=== PATIENT | female | born 1990 | race Hispanic/Latino ===

== ENCOUNTER 2020-01-02 11:46 | Emergency (ER) | payer OTHER, SELFPAY ==
--- NOTE | ~2020-01-02 | CT_ITS ---
EXAMINATION: CT abdomen pelvis w con EXAM DATE: 01/02/2020 14:16 INDICATION: Right-sided abdominal pain. TECHNIQUE: Spiral CT of the abdomen and pelvis was performed following intravenous injection of 100 m L Omnipaque 350. Axial, coronal and sagittal images were reviewed. The dose-length product (DLP) fo r this examination was 714.86 mGy-cm. The exposure was tailored according to patient size (auto mA e xposure control), and iterative reconstruction (ASIR) was used as additional dose reduction technique . There is no prior study for comparison. FINDINGS: The liver, spleen, adrenal glands and pancreas are unremarkable. Gallbladder is unremarkab le. No biliary obstruction. Portal and splenic veins are patent. Kidneys enhance symmetrically. T here is no hydronephrosis. There is is retroflexed. There is a 3 cm left adnexal lesion likely the d ominant physiologic follicle. The bladder is unremarkable. There is no retroperitoneal or pelvic lym phadenopathy. The appendix is normal. The stomach and small bowel are unremarkable. There is expected amount of c olonic stool. No free intraperitoneal gas. The heart is normal in size. There are no pericardial or pleural effusions. The lung bases are unremarkable. Chronic L5 spondylolysis without spondyloli sthesis. IMPRESSION: 1. No acute intra-abdominal findings. 2. Chronic L5 spondylolysis bilaterally. Reviewed, dictated and finalized at location A. 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
[2020-01-02 11:50] VITALS: BP 131/84; PULSE 92; RESP 16; TEMP 36.4; O2SAT 99
--- NOTE | 2020-01-02 12:11 | PC.NURSE ---
patient brought back to ED room 18 with right sided abdomen pain. see triage notes. alert. oriented. still . states her daughter is 15 months old. taking only tylenol for migraines and pain at home. assessments documented.
--- NOTE | 2020-01-02 12:21 | ED.ABDPAIN ---
HPI - Abdominal Pain General Chief Complaint: Abdominal Pain Stated Complaint: ABD pain since last night Time Seen by Provider: 01/02/20 12:15 Source: patient Mode of arrival: ambulatory Limitations: no limitations History of Present Illness HPI narrative: 29 years old white female presents with right upper quadrant pain radiating to right flank area started yesterday. Patient vomited once yesterday. Patient reports pain gets worse with movement and palpation, get better if she lays down flat. Patient denies any fever, chills, nausea, chest pain, shortness of breath, exposure to anybody known having COVID-19. Patient does not take medicine at home, Does not smoke, drink or use drugs. Last menstrual. September 2019, patient had a baby July 2019 MD elicited complaint: abdominal pain Related Data Allergies Allergy/AdvReac Type Severity Reaction Status Date / Time No Known Allergies Allergy Verified 01/02/20 13:20 Review of Systems Review of Systems: Narrative: CONSTITUTIONAL: Denies fever, chills, or sweats. EYES: Denies visual changes, redness, or discharge. ENT: Denies rhinorrhea, congestion, sore throat, or otalgia. CARDIOVASCULAR: Denies chest pain, palpitations, or edema. RESPIRATORY: Denies cough or dyspnea. GASTROINTESTINAL: Abdominal pain GENITOURINARY: Denies dysuria or hematuria. SKIN: Denies rash or itching. MUSCULOSKELETAL: Denies back pain, joint pain, or myalgia. NEUROLOGIC: Denies headache, numbness, or weakness. PSYCHIATRIC: Denies anxiety or depression. [facility] Social History Social History (Updated 01/02/20 @ 12:23 by Yodit Murillo MD) Social History: Patient does not smoke, Second hand tobacco smoke exposure: No Exam Narrative: Exam Narrative: General appearance: Well-developed, well-nourished Skin: Normal color Head: Normocephalic, nontraumatic Eyes: Clear conjunctiva ENT: Oropharynx normal, ears normal, nose normal Neck: Supple, nontender Chest and respiratory: Airway patent, no respiratory distress, no accessory muscle use Heart: Regular rate/rhythm Abdomen: Soft, right abdominal tenderness, right flank tenderness Vascular: Normal peripheral pulses, normal capillary refill. 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 Further plan to follow Differential Diagnosis Differential diagnosis: Likely abdominal pain, calculus of kidney, constipation and pancreatitis Lab Data Result diagrams: 01/02/20 12:36 01/02/20 12:36 Labs: Lab Results 01/02/20 01/02/20 01/02/20 Range/Units 12:36 12:36 12:36 WBC 9.4 (4.5-10.0) K/mm3 RBC 5.06 (4.2-5.4) M/mm3 Hgb 14.5 (12.0-15.0) g/dL Hct 43.4 (37.0-47.0) % MCV 85.8 (80-100) fl MCH 28.7 (26-34) pg MCHC 33.4 (32-36) g/dl RDW 12.2 (11.5-14.5) % Plt Count 259 (150-375) k/mm3 MPV 10.3 (7.4-10.4) fl Immature Gran % (Auto) 0.3 (0-0.5) % Neut % (Auto) 70.1 (45.5-73.1) % Lymph % (Auto) 23.5 (18.3-44
[2020-01-02 12:58] LABS: Basophils Percent Auto 0.3 % (0.2-1.2); Eosinophils Absolute Auto 0.1 K/mm3 (0-0.3); Eosinophils Percent Auto 0.7 % (0-4.4); Hematocrit 43.4 % (37.0-47.0); Hemoglobin 14.5 g/dL (12.0-15.0); Immature Granulocyte Absolute 0.03 K/mm3 (0.00-0.031); Immature Granulocyte Percent A 0.3 % (0-0.5); Lymphocytes Percent Auto 23.5 % (18.3-44.2); Mean Corpuscular HGB Conc 33.4 g/dl (32-36); Mean Corpuscular Hemoglobin 28.7 pg (26-34); Mean Corpuscular Volume 85.8 fl (80-100); Mean Platelet Volume 10.3 fl (7.4-10.4); Monocytes Absolute Auto 0.5 K/mm3 (0.1-0.6); Monocytes Percent Auto 5.1 % (2.6-8.5); Neutrophils Absolute Auto 6.6 K/mm3 (1.3-6.7); Neutrophils Percent Auto 70.1 % (45.5-73.1); Platelet Count Result 259 k/mm3 (150-375); Red Blood Count 5.06 M/mm3 (4.2-5.4); Red Cell Distribution Width 12.2 % (11.5-14.5); White Blood Count 9.4 K/mm3 (4.5-10.0)
[2020-01-02 13:02] LABS: Add Urine Microscopic? YES; Appearance Urine Cloudy (Clear); Bilirubin Urine Negative (Negative); Blood Urine Negative (Negative); Color Urine Yellow (Yellow); Glucose Urine UA Negative (Negative); Ketones Urine Negative (Negative); Leukocyte Esterase Ur Negative LEU/UL (Negative); Mucus Urine Rare /lpf; Nitrate Urine Negative (Negative); Protein Urine 2+ mg/dL (Negative); RBC Urine 0-2 /hpf (0-2); Specific Grav Ur 1.027 (1.001-1.035); Squamous Epithelial Cell Urine Many /hpf (Few); Urobilinogen Urine Negative mg/dL (<2.0); WBC Urine 0-3 /hpf
[2020-01-02 13:12] LABS: Alanine Aminotransferase 21 U/L (4-35); Albumin Level 4.7 g/dL (3.5-5.1); Alkaline Phosphatase 99 U/L (38-126); Anion Gap 10 mmol/L (8-16); Aspartate Amino Transferase 24 U/L (14-36); Bilirubin,Total 0.6 mg/dL (0.2-1.3); Blood Urea Nitrogen 8 mg/dL (7-17); Calcium 9.2 mg/dL (8.4-10.2); Carbon Dioxide 29 mmol/L (22-30); Chloride 100 mmol/L (98-107); Estimated Glomerular Filt Rate > 60; Glucose 92 mg/dL (65-105); Lipase 195 U/L (23-300); Potassium 3.5 mmol/L (3.4-5.0); Sodium 139 mmol/L (137-145)
--- NOTE | 2020-01-02 13:55 | PC.NURSE ---
patient to CT via wheelchair.
--- NOTE | 2020-01-02 14:09 | PC.NURSE ---
received call from [employer] patient with increased nausea and some dizziness after contrast given. back in room 21 now. alert. c/o nausea. vitals ok. call light in reach. side rail up. denies needs.
[2020-01-02 14:10] VITALS: BP 148/70; PULSE 78; RESP 18; O2SAT 100
[2020-01-02 14:30] VITALS: BP 127/71; PULSE 78; RESP 18; O2SAT 100
--- NOTE | 2020-01-02 14:32 | PC.NURSE ---
all tests resulted. resting on stretcher. vitals good. denies needs.
[2020-01-02 15:00] VITALS: BP 126/72; PULSE 82; RESP 16; O2SAT 100
== END 2020-01-02 15:27 | disposition home or self-care (01) ==
PROVIDERS: Emergency Provider Emergency Medicine
DX: R10.11 Right upper quadrant pain (principal)
CPT/HCPCS: 36415; 74177; 80053; 81001; 81025; 83690; 85025; 99284; Q9967

== ENCOUNTER 2020-05-25 16:33 | Emergency (ER) | payer OTHER, SELFPAY ==
[2020-05-25 17:13] VITALS: BP 142/99; PULSE 99; RESP 12; TEMP 36.8; O2SAT 100
--- NOTE | 2020-05-25 18:37 | PC.NURSE ---
ambulates around WR with slight limp. No acute distress.
[2020-05-25 19:25] LABS: Basophils Percent Auto 0.2 % (0.2-1.2); Hematocrit 41.6 % (37.0-47.0); Hemoglobin 14.1 g/dL (12.0-15.0); Immature Granulocyte Absolute 0.02 K/mm3 (0.00-0.031); Immature Granulocyte Percent A 0.2 % (0-0.5); Lymphocytes Absolute Auto 2.79 K/mm3 (0.9-3.2); Lymphocytes Percent Auto 30.9 % (18.3-44.2); Mean Corpuscular HGB Conc 33.9 g/dl (32-36); Mean Corpuscular Hemoglobin 29.4 pg (26-34); Mean Corpuscular Volume 86.7 fl (80-100); Mean Platelet Volume 9.1 fl (7.4-10.4); Monocytes Absolute Auto 0.6 K/mm3 (0.1-0.6); Monocytes Percent Auto 6.1 % (2.6-8.5); Neutrophils Absolute Auto 5.7 K/mm3 (1.3-6.7); Neutrophils Percent Auto 62.6 % (45.5-73.1); Platelet Count Result 311 k/mm3 (150-375); Red Cell Distribution Width 12.1 % (11.5-14.5)
[2020-05-25 19:34] VITALS: BP 131/79; PULSE 94; RESP 15; O2SAT 100
[2020-05-25 19:34] LABS: Anion Gap 8 mmol/L (8-16); Blood Urea Nitrogen 9 mg/dL (7-17); Calcium 9.1 mg/dL (8.4-10.2); Carbon Dioxide 28 mmol/L (22-30); Chloride 103 mmol/L (98-107); Estimated Glomerular Filt Rate > 60; Glucose 95 mg/dL (65-105); Potassium 3.7 mmol/L (3.4-5.0); Sodium 139 mmol/L (137-145)
[2020-05-25 19:38] LABS: INR 0.9; Prothrombin Time 12.9 Seconds (11.1-14.7)
[2020-05-25 19:39] LABS: Partial Thromboplastin Time 32.7 SECONDS (22.3-36.8)
[2020-05-25 19:57] LABS: D Dimer 0.27 ug/mL (<0.48)
--- NOTE | 2020-05-25 20:02 | ED.LOWEXIN ---
HPI - Extremity Injury (Lower) General Chief Complaint: Extremity Injury, Lower Stated Complaint: bilat leg pain Time Seen by Provider: 05/25/20 19:13 Source: patient Mode of arrival: ambulatory Limitations: no limitations History of Present Illness HPI Narrative: Patient is a 29 year old female who presents complaining of leg pain. She reports pain to bilateral legs x 1 day. Reports pain to left leg has subsided and reports pain only to right leg. She reports tingling in right leg that has resolved. She reports a history of RLS. She reports getting [employer] Vaccine on 05/17/20. She denies chest pain or shortness of breath. She denies history of DVT. MD complaint: other (right leg pain) Related Data Allergies Allergy/AdvReac Type Severity Reaction Status Date / Time amoxicillin [From Amoxil] Allergy Rash Verified 05/25/20 19:37 Review of Systems Review of Systems: Narrative: CONSTITUTIONAL: Denies fever, chills, or sweats. EYES: Denies visual changes, redness, or discharge. ENT: Denies rhinorrhea, congestion, sore throat, or otalgia. CARDIOVASCULAR: Denies chest pain, palpitations, or edema. RESPIRATORY: Denies cough or dyspnea. GASTROINTESTINAL: Denies abdominal pain, nausea, vomiting, or diarrhea. GENITOURINARY: Denies dysuria or hematuria. SKIN: Denies rash or itching. MUSCULOSKELETAL: Reports right leg pain NEUROLOGIC: Denies headache, numbness, dizziness, or weakness. PSYCHIATRIC: Denies anxiety or depression. PMFSH Past Medical History Medical History (Updated 05/25/20 @ 20:15 by WILBER Blanchard) No significant past medical history Surgical History Surgical History (Updated 05/25/20 @ 20:07 by WILBER Blanchard) No significant past surgical history Social History Social History Social History: Patient does not smoke, Second hand tobacco smoke exposure: No Gender identity (if verbalized by the patient): Female Comments At the time of signature, I have reviewed and agree with nursing past medical, surgical, social, and family history unless otherwise noted. Please see nursing chart for further information. There is no relevant family history pertinent to the presenting complaint. Exam Narrative: Exam Narrative: GENERAL: Well-appearing, well-nourished, and in no acute distress. HEAD: Normocephalic, atraumatic. EYES: EOMI. No redness or drainage. Conjunctiva are normal. ENT: Mucous membranes pink and moist. CHEST: No respiratory distress. Clear to auscultation. HEART: Regular rate and rhythm. No murmur appreciated. Normal peripheral pulses. EXTREMITIES: Normal range of motion. No edema, erythema, lesions or warmth noted to bilateral legs. SKIN: Warm, dry, no rash. NEURO: No focal deficits. Alert and oriented x3. Gait steady. PSYCH: Normal affect. No signs of depression or anxiety. Course Vital Signs Vital signs: Vital Signs Temperature 36.8 C 05/25/20 17:13 Pulse Rate 99 05/25/20 17:13 Respiratory Rate 12 05/25/20 17:13 Blood Pressure 142/99 H 05/25/20 17:13 Pulse Oximetry 100 05/25/20 17:13 Temperature 36.8 C 05/25/20 17:13 Pulse Rate 95 05/25/20 20:43 Respiratory Rate 16 05/25/20 20:43 Blood Pressure 132/73 05/25/20 20:43 Pulse Oximetry 100 05/25/20 20:43 Reviewed-patient is informed that they may have pre-hypertension or hypertension based on a blood pressure reading. I recommend the patient call the primary care provider listed on their discharge instructions or a physician of their choice this week to arrange follow-up for further evaluation of possible pre-hypertension or hypertension. MDM - Extremity Injury (Lower) MDM Narrative Medical decision making narrative: Patient's labs are within normal limits. Small likelihood of DVT or other clot. Discussed with patient. Discussed signs or symptoms that would warrant a return to the ED for further evaluation. Patient agrees with p
[2020-05-25 20:43] VITALS: BP 132/73; PULSE 95; RESP 16; O2SAT 100
== END 2020-05-25 20:46 | disposition home or self-care (01) ==
PROVIDERS: Physician Assistant; Emergency Provider Nurse Practitioner; PCP Physician Assistant
DX: M79.604 Pain in right leg (principal); G25.81 Restless legs syndrome
CPT/HCPCS: 36415; 80048; 85025; 85380; 85610; 85730; 99283

== ENCOUNTER 2020-07-27 14:32 | Emergency (ER) | payer OTHER, SELFPAY ==
[2020-07-27 14:42] VITALS: BP 133/78; PULSE 81; RESP 20; TEMP 36.7; O2SAT 99
--- NOTE | 2020-07-27 14:59 | ED.SKABFB ---
HPI - Skin/Abscess/Foreign Bdy General Chief complaint: Skin/Abscess/Foreign Body Stated complaint: Blister on foot Time Seen by Provider: 07/27/20 14:55 Source: patient Mode of arrival: ambulatory Limitations: no limitations History of Present Illness HPI narrative: Yesi Garcia is a 29 yo female from medial side of left foot-has had it for a few days, she is concerned because it drained and fluid is more yellowish in the inside, it is less lightly red around the actual blister and she is concerned about infection Related Data Home Medications Medication Instructions Recorded Confirmed No Home Medications 07/27/20 07/27/20 Allergies Allergy/AdvReac Type Severity Reaction Status Date / Time amoxicillin [From Amoxil] Allergy Rash Verified 07/27/20 14:53 Review of Systems Review of Systems: Narrative: CONSTITUTIONAL: Denies fever, chills, sweats. EYES: Denies visual changes, redness, discharge. ENT: Denies rhinorrhea, congestion, sore throat, otalgia. CARDIOVASCULAR: Denies chest pain, palpitations, edema. RESPIRATORY: Denies dyspnea, wheezing, cough GASTROINTESTINAL: Denies abdominal pain, nausea, vomiting, diarrhea. GENITOURINARY: Denies dysuria, hematuria, abnormal discharge SKIN: Denies rash or itching. Small blister medial side left foot NEUROLOGIC: Denies numbness, or focal weakness. PSYCHIATRIC: Denies anxiety or depression. PMFSH Past Medical History Medical History Migraine No significant past medical history Surgical History Surgical History No significant past surgical history Social History Social History Social History: Patient does not smoke, Second hand tobacco smoke exposure: No Gender identity (if verbalized by the patient): Female Comments At time of signature, I agree with nursing past medical, surgical, social and family history. There is no relevant family history pertinent to the presenting complaint. Exam Narrative: Exam Narrative: GENERAL: This is a well-nourished, well-developed patient, in mild distress. HEAD: normocephalic, atraumatic. EYES: PERRL. Sclera clear/white. Vision is grossly intact. EARS: External ears normal, auditory canals clear and without drainage, TMs normal without perforation. Hearing grossly intact. NOSE: External nose normal without nasal discharge, nares without redness, no rhinorrhea. THROAT: Mucous membranes moist, posterior pharynx NECK: Neck supple, non-tender CARDIOVASCULAR: Regular rate and rhythm without murmurs, gallops, or rubs. RESPIRATORY: Clear to auscultation. Breath sounds equal bilaterally. No wheezes, rales, or rhonchi. GASTROINTESTINAL: Abdomen soft, non-tender, SKIN: warm, intact with no suspicious lesions or rash, good texture and turgor. Left medial blister side of foot, mild hardness, no fluctuant, 1.5x 1.5, with some fluid NEURO: awake, alert, and oriented to person, place and time. There were no obvious focal neurologic abnormalities. Steady gait EXTREMITIES: Normal range of motion. BACK: Nontender without deformity Course Course Emergency Course: Posterior on the medial side of left foot Does not appear to be infected continue with Neosporin and dressing, no pressure to the blister, discussed her shoes Vital Signs Vital signs: Vital Signs Temperature 98.1 F 07/27/20 14:42 Pulse Rate 81 07/27/20 14:42 Respiratory Rate 20 07/27/20 14:42 Blood Pressure 133/78 07/27/20 14:42 Pulse Oximetry 99 07/27/20 14:42 Temperature 98.1 F 07/27/20 14:42 Pulse Rate 81 07/27/20 14:42 Respiratory Rate 20 07/27/20 14:42 Blood Pressure 133/78 07/27/20 14:42 Pulse Oximetry 99 07/27/20 14:42 MDM - Skin/Abscess/Foreign Bdy Differential Diagnosis Differential diagnosis: Likely abscess of skin or subcutaneous tissue, urticaria, ce
== END 2020-07-27 15:15 | disposition home or self-care (01) ==
PROVIDERS: Emergency Provider Nurse Practitioner
DX: S90.822A Blister (nonthermal), left foot, initial encounter (principal); X58.XXXA Exposure to other specified factors, initial encounter
CPT/HCPCS: 99212; G0463

== ENCOUNTER 2020-09-17 11:46 | Emergency (ER) | payer OTHER, SELFPAY ==
--- NOTE | ~2020-09-17 | CT_ITS ---
EXAMINATION: CT BRAIN W/O DATE: 09/17/2020 13:13 INDICATION: Severe headache TECHNIQUE: Computed tomography (CT) of the head was performed without intravenous contrast. The dose- length product was 605.33 mGy-cm. Automated exposure control and iterative reconstruction technique w ere employed. COMPARISON: No prior studies for comparison. FINDINGS: Normal brain parenchymal volume for age. Normal roldan-white differentiation. No acute intrac ranial hemorrhage, infarction, mass or mass effect. No ventriculomegaly or midline shift. Midline sagittal images demonstrate a normal corpus callosum, c raniovertebral junction and sella turcica. Basilar cisterns are patent. Paranasal sinuses and mastoids are pneumatized. No depressed skull fractures. IMPRESSION: 1. No acute intracranial abnormality. Reviewed, dictated and finalized at location A.
[2020-09-17 12:00] VITALS: BP 129/88; PULSE 92; RESP 20; TEMP 37; O2SAT 100
[2020-09-17 13:48] VITALS: BP 124/87; PULSE 96; RESP 20; O2SAT 98
[2020-09-17] MEDS: PROCHLORPERAZINE EDISYLATE 10 MG/2 ML VIAL IV PUSH (14:30)
[2020-09-17] MEDS: LACTATED RINGERS 1,000 ML 999 ML IV CONT (14:31)
[2020-09-17 14:32] VITALS: BP 135/87; PULSE 83; RESP 20; O2SAT 100
--- NOTE | 2020-09-17 14:36 | ED.HA ---
HPI - Headache General Chief Complaint: Headache Stated Complaint: headache, vomiting Time Seen by Provider: 09/17/20 12:45 Source: patient Mode of arrival: ambulatory Limitations: no limitations History of Present Illness HPI Narrative: 30-year-old female Here for evaluation of a headache She says that symptoms began in 5 or 6 days ago went away for a day and now have returned She has a history of migraines and although she has had some nausea with this she is also had some other symptoms which are less typical for her Primarily she had some body aches and fatigue which were significant enough that she went to have a Covid test 3 days ago which was negative She does not have visual symptoms, she does not have a fever, she does not have neck pain, she does not have sinus congestion, and no sore throat She is used Tylenol which is helped but her symptoms have tended to return Related Data Home Medications Medication Instructions Recorded Confirmed No Home Medications 07/27/20 09/17/20 Allergies Allergy/AdvReac Type Severity Reaction Status Date / Time amoxicillin [From Amoxil] Allergy Rash Verified 09/17/20 12:40 Review of Systems Review of Systems: All systems reviewed & are unremarkable except as noted in HPI and below Constitutional: Constitutional: Reports no additional constitutional complaints, Denies chills, Reports fatigue, Denies fever(s), Denies headache(s) and Reports weakness Eyes: Eyes: Reports no additional eye complaints, Denies change in vision and Reports photophobia ENT: Denies headache(s), Denies nasal congestion and Denies sore throat Cardiovascular: Cardiovascular: Denies dyspnea Respiratory: Respiratory: Reports cough and Denies dyspnea Gastrointestinal: Gastrointestinal: Denies abdominal pain, Denies diarrhea, Reports nausea and Denies vomiting Genitourinary: Genitourinary: Denies urinary frequency Musculoskeletal: Musculoskeletal: Reports myalgias, Denies deformity, Denies arthralgias, Denies joint swelling and Denies numbness Integumentary/Breasts: Skin/Breast: Denies rash and Denies wounds Neurologic: Reports headache(s), Denies focal weakness and Denies numbness Psychiatric: Psychiatric: Reports no additional psychiatric complaints Endocrine: Endocrine: Reports no additional endocrine complaints Hematologic/Lymphatic: Hematologic/Lymphatic: Reports no additional hematologic/lymphatic complaints Allergic/Immunologic: Allergic/Immunologic: Reports no additional allergic/immunologic complaints PMFSH Past Medical History Medical History Migraine No significant past medical history Surgical History Surgical History No significant past surgical history Social History Social History Social History: Patient does not smoke, Second hand tobacco smoke exposure: No Gender identity (if verbalized by the patient): Female Exam Const: General: cooperative and no acute distress Orientation/consciousness: patient oriented x3 (alert) HENMT: Head: normal to inspection, normocephalic, atraumatic, no contusions and no hematomas Ears: external ears normal General nose exam: no epistaxis Face and sinus: no sinus tenderness Eyes: Conjunctivae: conjunctivae normal Pupils: Equal, round and reactive pupils present EOM: EOMs intact bilaterally Other: Difficult funduscopic but disc looks sharp Neck: Neck: normal visual inspection, no lymphadenopathy, supple and no JVD Other: Supple, full range of motion, nontender Resp: Effort & Inspection: normal respiratory effort and not labored Auscultation: clear to auscultation bilaterally, no rales, no rhonchi, no wheezes and other (BS =) Cardio: Rate: regular rate Rhythm: regular rhythm Heart sounds: no murmurs GI: GI Palp: Yes Soft to palpation, No Tenderness to
[2020-09-17 14:38] LABS: Basophils Percent Auto 0.2 % (0.2-1.2); Hematocrit 39.6 % (37.0-47.0); Hemoglobin 13.5 g/dL (12.0-15.0); Immature Granulocyte Absolute 0.02 K/mm3 (0.00-0.031); Immature Granulocyte Percent A 0.2 % (0-0.5); Lymphocytes Absolute Auto 2.29 K/mm3 (0.9-3.2); Lymphocytes Percent Auto 24.7 % (18.3-44.2); Mean Corpuscular HGB Conc 34.1 g/dl (32-36); Mean Corpuscular Volume 85.2 fl (80-100); Mean Platelet Volume 9.5 fl (7.4-10.4); Monocytes Absolute Auto 0.5 K/mm3 (0.1-0.6); Monocytes Percent Auto 4.9 % (2.6-8.5); Neutrophils Absolute Auto 6.5 K/mm3 (1.3-6.7); Platelet Count Result 279 k/mm3 (150-375); Red Blood Count 4.65 M/mm3 (4.2-5.4); Red Cell Distribution Width 11.8 % (11.5-14.5); White Blood Count 9.3 K/mm3 (4.5-10.0)
[2020-09-17 15:59] VITALS: BP 126/84; PULSE 82; RESP 20; O2SAT 99
[2020-09-17 16:20] VITALS: BP 118/88; PULSE 78; RESP 20; O2SAT 99
== END 2020-09-17 16:22 | disposition home or self-care (01) ==
PROVIDERS: Emergency Provider Emergency Medicine; PCP Physician Assistant
DX: R51.9 Headache, unspecified (principal)
CPT/HCPCS: 36415; 70450; 81025; 85025; 96361; 96374; 99284; J0780; J1200; J7120

== ENCOUNTER 2020-09-17 19:23 | Emergency (ER) | payer OTHER, SELFPAY ==
[2020-09-17 19:37] VITALS: BP 135/92; PULSE 110; RESP 18; TEMP 36.1; O2SAT 99
[2020-09-17] MEDS: diphenhydrAMINE HCl INJ 50 MG/ML VIAL (21:08)
--- NOTE | 2020-09-17 21:42 | ED.GENADULT ---
HPI - General Adult General Chief complaint: Unspecified Stated complaint: jaw pain Time Seen by Provider: 09/17/20 21:40 Source: patient Mode of arrival: ambulatory Limitations: no limitations History of Present Illness HPI narrative: 30-year-old female Treated for a headache earlier with Compazine and started having a dystonic reaction after she got home IV Benadryl upfront and apart from being drowsy is better now Related Data Home Medications Medication Instructions Recorded Confirmed No Home Medications 07/27/20 09/17/20 Allergies Allergy/AdvReac Type Severity Reaction Status Date / Time amoxicillin [From Amoxil] Allergy Unknown Rash Verified 09/17/20 21:06 prochlorperazine AdvReac Intermediate Muscle Verified 09/17/20 21:06 [From Compazine] Spasms Review of Systems Musculoskeletal: Comments: Facial and neck spasms PMFSH Past Medical History Medical History Migraine No significant past medical history Surgical History Surgical History No significant past surgical history Social History Social History Social History: Patient does not smoke, Second hand tobacco smoke exposure: No Gender identity (if verbalized by the patient): Female Exam Const: General: cooperative, healthy appearing, comfortable and no acute distress HENMT: Head: normal to inspection Neck: Neck: normal visual inspection Resp: Effort & Inspection: normal respiratory effort and able to speak in complete sentences Neuro: General: patient oriented x3, CN's II-XI intact bilaterally and other (Drowsy) Course Course Emergency Course: Symptoms resolved after Benadryl Vital Signs Vital signs: Vital Signs Temperature 36.1 C L 09/17/20 19:37 Pulse Rate 110 H 09/17/20 19:37 Respiratory Rate 18 09/17/20 19:37 Blood Pressure 135/92 H 09/17/20 19:37 Pulse Oximetry 99 09/17/20 19:37 Temperature 36.1 C L 09/17/20 19:37 Pulse Rate 110 H 09/17/20 19:37 Respiratory Rate 18 09/17/20 19:37 Blood Pressure 135/92 H 09/17/20 19:37 Pulse Oximetry 99 09/17/20 19:37 Medical Decision Making Vital Signs Vital Signs: Vital Signs Temperature 36.1 C L 09/17/20 19:37 Pulse Rate 110 H 09/17/20 19:37 Respiratory Rate 18 09/17/20 19:37 Blood Pressure 135/92 H 09/17/20 19:37 Pulse Oximetry 99 09/17/20 19:37 Temperature 36.1 C L 09/17/20 19:37 Pulse Rate 110 H 09/17/20 19:37 Respiratory Rate 18 09/17/20 19:37 Blood Pressure 135/92 H 09/17/20 19:37 Pulse Oximetry 99 09/17/20 19:37 Discharge Plan Discharge Clinical Impression: Dystonic drug reaction Patient Disposition: Home, Self-Care Condition: Improved Additional Instructions: Dystonic reactions like you experienced are occasional side effects of drugs frequently used to treat nausea and vomiting or migraine headaches, in the future if you need treatment for these conditions getting Benadryl as well will often avoid that complication Symptoms should not return after discharge but if they do you can take oral [id number] Benadryl at home Prescriptions: No Action No Home Medications RF: 0 Follow-up/Referrals: Chidi,CARISSA Stone [Primary Care Provider] -
[2020-09-17 22:22] VITALS: BP 131/75; PULSE 98; RESP 18; TEMP 36.7; O2SAT 100
== END 2020-09-17 22:24 | disposition home or self-care (01) ==
PROVIDERS: Emergency Provider Emergency Medicine; PCP Physician Assistant
DX: G24.09 Other drug induced dystonia (principal); T43.3X5A Adverse effect of phenothiazine antipsychotics and neuroleptics, initial encounter
CPT/HCPCS: 99281; J1200

== ENCOUNTER 2021-01-17 15:35 | Emergency (ER) | payer OTHER, SELFPAY ==
[2021-01-17 15:52] VITALS: BP 142/89; PULSE 81; RESP 16; TEMP 36.9; O2SAT 100
--- NOTE | 2021-01-17 17:08 | ED.EAR ---
HPI - Ear Problem General Chief complaint: Ear Stated complaint: ear pain Source: patient and RN notes reviewed Mode of arrival: ambulatory History of Present Illness HPI Narrative: This is a 30-year-old female who presented to urgent care with complaints of bilateral ear pain. According to patient she was ill last week she had coughing nausea vomiting, fatigue, and runny nose. She notes that her condition has improved but she has developed bilateral ear pain. The patient denies SOB, CP, palpitation, extremity numbness, lightheadedness, dizziness, constipation, diarrhea, chills, or fever. She denies any discharge or decrease in hearing, trauma or foreign bodies MD Complaint: ear pain Related Data Home Medications Medication Instructions Recorded Confirmed lisinopril 01/17/21 sumatriptan succinate mg PO 01/17/21 venlafaxine mg PO 01/17/21 Allergies Allergy/AdvReac Type Severity Reaction Status Date / Time amoxicillin [From Amoxil] Allergy Unknown Rash Verified 09/17/20 21:06 prochlorperazine AdvReac Intermediate Muscle Verified 09/17/20 21:06 [From Compazine] Spasms Review of Systems Review of Systems: A 14 organ system Review of Systems was performed and pertinent positives included in the HPI, otherwise remaining ROS is negative. [facility] Past Medical History Medical History Migraine No significant past medical history Surgical History Surgical History No significant past surgical history Social History Social History Social History: Patient does not smoke, Second hand tobacco smoke exposure: No Gender identity (if verbalized by the patient): Female Exam Narrative: GENERAL: This is a well-nourished, well-developed patient, in no apparent distress. HEAD: normocephalic, atraumatic. EYES: PERRL. Sclera clear/white. Vision is grossly intact. EARS: External ears normal, auditory canals edema with erythematous and without drainage, TMs normal without perforation. Hearing grossly intact. NOSE: External nose normal with no obvious nasal discharge, nares without redness, no rhinorrhea. THROAT: Mucous membranes moist, posterior pharynx clear. NECK: Neck supple, non-tender without lymphadenopathy, masses or thyromegaly. CARDIOVASCULAR: Regular rate and rhythm without murmurs, gallops, or rubs. RESPIRATORY: Clear to auscultation. Breath sounds equal bilaterally. No wheezes, rales, or rhonchi. GASTROINTESTINAL: Abdomen soft, non-tender, nondistended. Bowel sounds are active. No hepato-splenomegaly, or palpable masses. No guarding. SKIN: warm, intact with no suspicious lesions or rash, good texture and turgor. NEURO: awake, alert, and oriented to person, place and time. There were no obvious focal neurologic abnormalities. Steady gait EXTREMITIES: Normal range of motion. No edema. No calf tenderness. Negative Homans sign bilaterally. BACK: Nontender without deformity or crepitance. No flank tenderness. For his blood Course Course Emergency Course: Patient will discharge home with cefdinir she is allergic to amoxicillin Vital Signs Vital signs: Vital Signs Temperature 98.4 F 01/17/21 15:52 Pulse Rate 81 01/17/21 15:52 Respiratory Rate 16 01/17/21 15:52 Blood Pressure 142/89 H 01/17/21 15:52 Pulse Oximetry 100 01/17/21 15:52 Temperature 98.4 F 01/17/21 15:52 Pulse Rate 81 01/17/21 15:52 Respiratory Rate 16 01/17/21 15:52 Blood Pressure 142/89 H 01/17/21 15:52 Pulse Oximetry 100 01/17/21 15:52 Medical Decision Making Differential Diagnosis Differential Diagnosis: Otitis media versus otitis externa versus viral infection Vital Signs Vital Signs: Vital Signs Temperature 98.4 F 01/17/21 15:52 Pulse Rate 81 01/17/21 15:52 Respiratory Rate 16 01/17/21 15:52 Blood Pressure 142/89 H 01/17/21 15
== END 2021-01-17 17:16 | disposition home or self-care (01) ==
PROVIDERS: Emergency Provider Nurse Practitioner; PCP Physician Assistant
DX: H60.501 Unspecified acute noninfective otitis externa, right ear (principal)
CPT/HCPCS: 99213; G0463

== ENCOUNTER 2021-03-01 07:29 | Emergency (ER) | payer OTHER, SELFPAY ==
[2021-03-01 07:30] VITALS: BP 135/90; PULSE 94; RESP 16; TEMP 37; O2SAT 99
[2021-03-01 08:19] LABS: Add Urine Microscopic? YES; Appearance Urine Cloudy (Clear); Bacteria Urine Trace /hpf; Bilirubin Urine Negative (Negative); Blood Urine 1+ (Negative); Color Urine Yellow (Yellow); Glucose Urine UA Negative (Negative); Ketones Urine Negative (Negative); Leukocyte Esterase Ur 2+ LEU/UL (Negative); Mucus Urine Heavy /lpf; Nitrate Urine Negative (Negative); Protein Urine Negative (Negative); Specific Grav Ur 1.027 (1.001-1.035); Squamous Epithelial Cell Urine Many /hpf (Few)
[2021-03-01 08:27] LABS: Basophils Percent Auto 0.3 % (0.2-1.2); Eosinophils Percent Auto 0.1 % (0-4.4); Hematocrit 37.9 % (37.0-47.0); Immature Granulocyte Absolute 0.02 K/mm3 (0.00-0.031); Immature Granulocyte Percent A 0.3 % (0-0.5); Lymphocytes Absolute Auto 1.96 K/mm3 (0.9-3.2); Lymphocytes Percent Auto 29.3 % (18.3-44.2); Mean Corpuscular HGB Conc 34.3 g/dl (32-36); Mean Corpuscular Hemoglobin 29.4 pg (26-34); Mean Corpuscular Volume 85.7 fl (80-100); Mean Platelet Volume 9.6 fl (7.4-10.4); Monocytes Absolute Auto 0.5 K/mm3 (0.1-0.6); Monocytes Percent Auto 7.8 % (2.6-8.5); Neutrophils Absolute Auto 4.2 K/mm3 (1.3-6.7); Neutrophils Percent Auto 62.2 % (45.5-73.1); Platelet Count Result 270 k/mm3 (150-375); Red Blood Count 4.42 M/mm3 (4.2-5.4); Red Cell Distribution Width 12.2 % (11.5-14.5); White Blood Count 6.7 K/mm3 (4.5-10.0)
[2021-03-01 08:38] LABS: Alanine Aminotransferase 17 U/L (4-35); Albumin Level 4.2 g/dL (3.5-5.1); Alkaline Phosphatase 65 U/L (38-126); Anion Gap 6 mmol/L (8-16); Aspartate Amino Transferase 21 U/L (14-36); Bilirubin,Total 0.8 mg/dL (0.2-1.3); Blood Urea Nitrogen 9 mg/dL (7-17); Carbon Dioxide 27 mmol/L (22-30); Chloride 105 mmol/L (98-107); Estimated Glomerular Filt Rate > 60; Glucose 107 mg/dL (65-110); Potassium 3.7 mmol/L (3.4-5.0); Sodium 138 mmol/L (137-145)
--- NOTE | 2021-03-01 08:47 | ED.GENADULT ---
HPI - General Adult General Chief complaint: Headache Stated complaint: i have a migraine Time Seen by Provider: 03/01/21 07:32 Source: patient and RN notes reviewed Mode of arrival: ambulatory Limitations: no limitations History of Present Illness HPI narrative: 30-year-old female with history of migraines presents to the emergency department for evaluation migraine with associated nausea vomiting dizziness and diarrhea. Patient states that the migraine started on approximately Friday. Patient has been taking her sumatriptan as directed. Patient states that this has helped a little bit. Patient reports the headache is typical to her previous. Patient states this is not the worst headache of her life. Patient states over the last 2 days she has developed some nausea and vomiting. Patient states that this is not atypical for her migraines. Patient also describes having some intermittent diarrhea. Patient states that prior to having a diarrheal bowel movement she does get lower abdominal cramping. Patient denies any cramping or abdominal pain at this time. Patient's last menstrual period was around February 10. Related Data Home Medications Medication Instructions Recorded Confirmed lisinopril 01/17/21 sumatriptan succinate mg PO 01/17/21 venlafaxine mg PO 01/17/21 Allergies Allergy/AdvReac Type Severity Reaction Status Date / Time amoxicillin [From Amoxil] Allergy Unknown Rash Verified 09/17/20 21:06 prochlorperazine AdvReac Intermediate Muscle Verified 09/17/20 21:06 [From Compazine] Spasms Review of Systems Review of Systems: CONSTITUTIONAL: Denies fever, chills, or sweats. EYES: Denies visual changes, redness, or discharge. ENT: Denies rhinorrhea, congestion, sore throat, or otalgia. CARDIOVASCULAR: Denies chest pain, palpitations, or edema. RESPIRATORY: Denies cough or dyspnea. GASTROINTESTINAL: Denies abdominal pain, nausea, vomiting, or diarrhea. GENITOURINARY: Denies dysuria or hematuria. SKIN: Denies rash or itching. MUSCULOSKELETAL: Denies back pain, joint pain, or myalgia. NEUROLOGIC: Does report migraine headache but denies any associated numbness or weakness. PSYCHIATRIC: Denies anxiety or depression. PMFSH Past Medical History Medical History Migraine No significant past medical history Surgical History Surgical History No significant past surgical history Social History Social History Social History: Patient does not smoke, Second hand tobacco smoke exposure: No Gender identity (if verbalized by the patient): Female Exam Narrative: APPEARANCE: Well appearing, no pain, no distress, well-nourished. HEAD: normocephalic, atraumatic. EYES: PERRLA/EOMI, conjunctivae clear. NOSE: Normal no drainage THROAT: Pharynx clear, no exudate. NECK: Supple. No adenopathy, no masses. RESPIRATORY: Airway patent, respirations nonlabored. Clear to auscultation bilaterally, no rales, rhonchi, wheezing. CARDIOVASCULAR: Regular rate and rhythm without murmurs rubs or gallops. ABDOMINAL: Soft, nontender, nondistended, normal bowel sounds MUSCULOSKELETAL: Moves all extremities. Strength/ROM intact, No edema, No calf tenderness. NEURO: Alert. Cranial nerves II through XII intact. SKIN: Warm, dry. Normal Color Course Course Emergency Course: Patient was updated on the results of her labs. Patient was treated for urinary tract infection using Macrobid. Patient reports she did test positive for COVID approximately 2 weeks ago also no further COVID testing was ordered. Patient states that her headache has resolved and denies any current complaints. Patient will be discharged with Macrobid and along with some Zofran to help with her nausea symptoms from her migraine. Patient was a bit on the importance having close follow-up with her primary
[2021-03-01] MEDS: KETOROLAC 15 MG/ML VIAL (*BKC) IV PUSH (08:54)
[2021-03-01] MEDS: SODIUM CHLORIDE 0.9% IV 1,000 ML 999 ML IV CONT (08:55)
[2021-03-01] MEDS: diphenhydrAMINE HCl INJ 50 MG/ML VIAL 25 MG IV PUSH (08:55)
[2021-03-01 09:28] VITALS: BP 129/85; PULSE 99; O2SAT 100
--- NOTE | 2021-03-01 09:31 | PC.NURSE ---
patient began to shake upper extremities following medication administration. YARIEL mary.
[2021-03-01] MEDS: NITROFURANTOIN MONOHYD MACROCR 100 MG CAP PO (09:45)
== END 2021-03-01 10:37 | disposition home or self-care (01) ==
PROVIDERS: Emergency Provider Emergency Medicine; PCP Physician Assistant
DX: G43.009 Migraine without aura, not intractable, without status migrainosus (principal); N30.01 Acute cystitis with hematuria
CPT/HCPCS: 36415; 80053; 81001; 81025; 85025; 87086; 87088; 96361; 96374; 96375; 99284; A9270; J1200; J1885; J7030

== ENCOUNTER 2021-03-05 08:48 | Emergency (ER) | payer OTHER, SELFPAY ==
[2021-03-05 09:01] VITALS: BP 137/92; PULSE 79; RESP 16; TEMP 36.5; O2SAT 100
--- NOTE | 2021-03-05 11:49 | ED.DIZZY ---
HPI - Dizziness General Chief Complaint: Dizziness Stated Complaint: dizzy Time Seen by Provider: 03/05/21 11:28 Source: patient and RN notes reviewed Mode of arrival: ambulatory Limitations: no limitations History of Present Illness HPI Narrative: 30-year-old female with history of migraines, recent urinary tract and Covid infection presents to the emergency department for evaluation of worsening dizziness. Patient states that her headache has continued to improve and is minor at this time. Patient states her symptoms are dizziness but denies any significant sensation of movement. Patient describes more lightheadedness rather than dizziness. Patient states she has felt like she was going to pass out when standing up but denies any actual syncope. Denies any sinus pressure or ear pain. Does have some nausea and vomiting. Denies any associate abdominal pain. Denies any urinary tract infection at this time Patient has been taking sumatriptan for her migraines. Related Data Home Medications Medication Instructions Recorded Confirmed lisinopril 01/17/21 sumatriptan succinate mg PO 01/17/21 venlafaxine mg PO 01/17/21 Allergies Allergy/AdvReac Type Severity Reaction Status Date / Time amoxicillin [From Amoxil] Allergy Unknown Rash Verified 03/05/21 11:44 prochlorperazine AdvReac Intermediate Muscle Verified 03/05/21 11:44 [From Compazine] Spasms Review of Systems Review of Systems: CONSTITUTIONAL: Denies fever, chills, or sweats. does report some dizziness/lightheadedness EYES: Denies visual changes, redness, or discharge. ENT: Denies rhinorrhea, congestion, sore throat, or otalgia. CARDIOVASCULAR: Denies chest pain, palpitations, or edema. RESPIRATORY: Denies cough or dyspnea. GASTROINTESTINAL: Denies abdominal pain. Does have some nausea and vomiting GENITOURINARY: Denies dysuria or hematuria. SKIN: Denies rash or itching. MUSCULOSKELETAL: Denies back pain, joint pain, or myalgia. NEUROLOGIC: Patient describes her current migraine as minor. PSYCHIATRIC: Denies anxiety or depression. REPLACED BY [facility] Past Medical History Medical History Migraine No significant past medical history Surgical History Surgical History No significant past surgical history Social History Social History Social History: Patient does not smoke, Second hand tobacco smoke exposure: No Gender identity (if verbalized by the patient): Female Exam Narrative: APPEARANCE: Well appearing, no pain, no distress, well-nourished. HEAD: normocephalic, atraumatic. EYES: PERRLA/EOMI, conjunctivae clear. NOSE: Normal no drainage EARS:TMS clear with good light reflex. THROAT: Pharynx clear, no exudate. NECK: Supple. No adenopathy, no masses. RESPIRATORY: Airway patent, respirations nonlabored. Clear to auscultation bilaterally, no rales, rhonchi, wheezing. CARDIOVASCULAR: Regular rate and rhythm without murmurs rubs or gallops. ABDOMINAL: Soft, nontender, nondistended, normal bowel sounds MUSCULOSKELETAL: Moves all extremities. Strength/ROM intact, No edema, No calf tenderness. NEURO: Alert. Cranial nerves II through XII intact. SKIN: Warm, dry. Normal Color Course Reevaluation(s) Reevaluation #1: Patient states both her lightheadedness and headache are resolved. Patient does have some epigastric burning which she associates with her GERD. Patient had an EKG ordered along with a GI cocktail. EKG showed no evidence of STEMI. Patient felt improved after the GI cocktail. Patient's labs were reviewed. Patient was updated on the results of her labs. Patient was encouraged to return to the emergency department if she had any worsening symptoms. Patient is also encouraged with close follow-up with her primary care physician. Vital Signs Vital signs: Vital Signs Temperature 97.7
[2021-03-05 12:04] LABS: Basophils Percent Auto 0.3 % (0.2-1.2); Hematocrit 39.7 % (37.0-47.0); Hemoglobin 13.7 g/dL (12.0-15.0); Immature Granulocyte Absolute 0.02 K/mm3 (0.00-0.031); Immature Granulocyte Percent A 0.3 % (0-0.5); Lymphocytes Absolute Auto 1.71 K/mm3 (0.9-3.2); Lymphocytes Percent Auto 22.1 % (18.3-44.2); Mean Corpuscular HGB Conc 34.5 g/dl (32-36); Mean Corpuscular Hemoglobin 29.7 pg (26-34); Mean Corpuscular Volume 86.1 fl (80-100); Mean Platelet Volume 9.4 fl (7.4-10.4); Monocytes Absolute Auto 0.3 K/mm3 (0.1-0.6); Monocytes Percent Auto 3.4 % (2.6-8.5); Neutrophils Absolute Auto 5.7 K/mm3 (1.3-6.7); Neutrophils Percent Auto 73.9 % (45.5-73.1); Platelet Count Result 293 k/mm3 (150-375); Red Blood Count 4.61 M/mm3 (4.2-5.4); Red Cell Distribution Width 11.9 % (11.5-14.5); White Blood Count 7.7 K/mm3 (4.5-10.0)
[2021-03-05] MEDS: KETOROLAC 15 MG/ML VIAL (*BKC) IV PUSH (12:13)
[2021-03-05] MEDS: SODIUM CHLORIDE 0.9% IV 1,000 ML 999 ML IV CONT (12:13)
[2021-03-05] MEDS: MECLIZINE HCL 25 MG TABLET PO (12:13)
[2021-03-05] MEDS: ONDANSETRON INJ 4 MG/2 ML VIAL IV PUSH (12:13)
[2021-03-05 12:22] LABS: Alanine Aminotransferase 18 U/L (4-35); Albumin Level 4.6 g/dL (3.5-5.1); Alkaline Phosphatase 70 U/L (38-126); Anion Gap 9 mmol/L (8-16); Aspartate Amino Transferase 21 U/L (14-36); Bilirubin,Total 0.7 mg/dL (0.2-1.3); Blood Urea Nitrogen 6 mg/dL (7-17); Calcium 9.3 mg/dL (8.4-10.2); Carbon Dioxide 26 mmol/L (22-30); Chloride 105 mmol/L (98-107); Estimated Glomerular Filt Rate > 60; Glucose 112 mg/dL (65-110); Potassium 3.6 mmol/L (3.4-5.0); Sodium 140 mmol/L (137-145)
[2021-03-05 12:34] LABS: Add Urine Microscopic? YES; Appearance Urine Clear (Clear); Bacteria Urine Trace /hpf; Bilirubin Urine Negative (Negative); Blood Urine 2+ (Negative); Color Urine Amber (Yellow); Glucose Urine UA Negative (Negative); Ketones Urine Negative (Negative); Leukocyte Esterase Ur Negative LEU/UL (Negative); Mucus Urine Rare /lpf; Nitrate Urine Negative (Negative); Protein Urine 1+ mg/dL (Negative); RBC Urine >75 /hpf (0-2); Squamous Epithelial Cell Urine Few /hpf (Few); Urobilinogen Urine Negative mg/dL (<2.0)
[2021-03-05 12:45] VITALS: BP 131/90; PULSE 110; RESP 12; O2SAT 100
[2021-03-05 12:45] LABS: Specific Grav Ur 1.004 (1.001-1.035)
--- NOTE | 2021-03-05 12:51 | ECG_ITS ---
Measurements Intervals [place] Rate: 83 P: 39 UT: 150 QRS: -5 QRSD: 84 T: 12 QT: 359 QTc: 423 Interpretive Statements SINUS RHYTHM LOW QRS VOLTAGE IN PRECORDIAL LEADS BORDERLINE ECG Electronically Signed On 03-05-2021 13:16:44 RN PSYCHIATRIC by Alonso Guy D.O.
--- NOTE | 2021-03-05 12:54 | PC.NURSE ---
Pt. stated developing chest pressure that she stated felt like acid reflux . ERP notified. ERP orderd GI cocktail and EKG via verbal order readback.
[2021-03-05] MEDS: BELLADONNA ALK/PHENOB ELIX 10 ML, MAG HYDROX/ALUMINUM HYD/SIMETH 30 ML, LIDOCAINE HCL 2... PO (13:05)
[2021-03-05 13:26] VITALS: PULSE 86; RESP 14
== END 2021-03-05 13:27 | disposition home or self-care (01) ==
PROVIDERS: Emergency Provider Emergency Medicine; PCP Physician Assistant
DX: R42 Dizziness and giddiness (principal); Z87.440 Personal history of urinary (tract) infections; Z86.16 Personal history of COVID-19; R94.31 Abnormal electrocardiogram [ECG] [EKG]
CPT/HCPCS: 36415; 80053; 81001; 85025; 87086; 93005; 96361; 96374; 96375; 99284; A9270; J1885; J2405; J7030

== ENCOUNTER 2021-11-05 11:01 | Emergency (ER) | payer OTHER, SELFPAY ==
--- NOTE | ~2021-11-05 | XR_ITS ---
EXAMINATION: XR ankle LT min 3V DATE: 11/05/2021 11:22 INDICATION: Left ankle pain, initial encounter TECHNIQUE: Anteroposterior, lateral, mortise, and additional oblique view of the ankle were obtained. COMPARISON: None. FINDINGS: There appears to be an acute avulsion injury of the lateral malleolus. There is lateral sof t tissue swelling of ankle. Ankle alignment is normal. IMPRESSION: 1. Findings consistent with acute avulsion injury of the lateral malleolus. Reviewed, dictated and finalized at location [facility].
[2021-11-05 11:10] VITALS: BP 122/76; PULSE 93; RESP 18; TEMP 36.7; O2SAT 100
--- NOTE | 2021-11-05 11:24 | ED.LOWEXIN ---
HPI - Extremity Injury (Lower) General Chief Complaint: Extremity Injury, Lower Stated Complaint: Fall Injury Left Ankle Pain Time Seen by Provider: 11/05/21 11:46 Source: patient and RN notes reviewed Mode of arrival: ambulatory Limitations: no limitations History of Present Illness HPI Narrative: 31-year-old female presents concern for left ankle pain. Reports yesterday she rolled her ankle walking on some gravel. She reports it swollen and painful. She denies decree sensation, strength, range of motion. Reports swelling. She denies intermittent MD complaint: ankle injury Related Data Home Medications Medication Instructions Recorded Confirmed amitriptyline 25 mg tablet 25 mg PO DAILY 11/05/21 11/05/21 lisinopril 10 1 tablet PO DAILY 11/05/21 11/05/21 mg-hydrochlorothiazide 12.5 mg tablet sumatriptan succinate 50 mg tablet 50 mg PO DIRECTED 11/05/21 11/05/21 Allergies Allergy/AdvReac Type Severity Reaction Status Date / Time amoxicillin [From Amoxil] Allergy Unknown Rash Verified 11/05/21 11:08 prochlorperazine AdvReac Intermediate Muscle Verified 11/05/21 11:08 [From Compazine] Spasms Review of Systems Review of Systems: CONSTITUTIONAL: Denies malaise, chills, sweats, or fever. SKIN: Denies rash or itching, open skin, laceration, abrasion, redness, warmth MUSCULOSKELETAL: Reports left ankle pain and swelling NEUROLOGIC: Denies numbness, weakness All systems reviewed & are unremarkable except as noted in HPI and below PMFSH Past Medical History Medical History Migraine No significant past medical history Surgical History Surgical History No significant past surgical history Social History Social History Social History: Patient does not smoke, Second hand tobacco smoke exposure: No Gender identity (if verbalized by the patient): Female Comments At time of signature, agree with nursing past medical, surgical, social and family history. There is no relevant family history pertinent to the presenting complaint Exam Narrative: GENERAL: Well-appearing, well-nourished, and in no acute distress. HEAD: Normocephalic, atraumatic. EYES: PERRLA, conjunctivae clear NECK: Supple. CHEST: Speaks in full sentences. No respiratory distress. HEART: Regular rate and rhythm. Normal and equal peripheral pulses. EXTREMITIES: Left ankle, foot, digits have normal strength and sensation, grossly normal range of motion. Moderate lateral edema without erythema, warmth, ecchymosis. 5/5 strength with digit and ankle flexion and extension. Normal sensation with sensitivity to light touch and pain. Lateral tenderness. No open wounds, no skin tenting, no devitalized tissue or atrophy, no trophic changes, no obvious deformity, alignment normal, nearby joints and structures intact. Distal pulses palpable and equal bilaterally, skin warm, dry, pink. Capillary refill less than 3 seconds. SKIN: Warm, dry, no rash. NEURO: Alert and oriented x3. PSYCH: Normal mood and affect Course Course Emergency Course: Patient is aware of diagnosis, understands and agrees to treatment plan. Anticipatory guidance given. Patient agrees to follow-up as directed and is aware of reasons to seek care at the emergency department. Portions of this record may have been created with voice recognition software Level of Care: Express Care Visit Vital Signs Vital signs: Vital Signs Temperature 98.0 F 11/05/21 11:10 Pulse Rate 93 11/05/21 11:10 Respiratory Rate 18 11/05/21 11:10 Blood Pressure 122/76 11/05/21 11:10 Pulse Oximetry 100 11/05/21 11:10 Oxygen Delivery Room Air 11/05/21 11:10 Temperature 98.0 F 11/05/21 11:10 Pulse Rate 93 11/05/21 11:10 Respiratory Rate 18 11/05/21 11:10 Blood Pressure 122/76 11/05/21 11:10 Pulse Oximetry 1
== END 2021-11-05 12:26 | disposition home or self-care (01) ==
PROVIDERS: Emergency Provider Nurse Practitioner; PCP Physician Assistant
DX: S82.892A Other fracture of left lower leg, initial encounter for closed fracture (principal); X50.9XXA Other and unspecified overexertion or strenuous movements or postures, initial encounter; X50.0XXA Overexertion from strenuous movement or load, initial encounter; I10 Essential (primary) hypertension
CPT/HCPCS: 29515; 73610; 99214; G0463

== ENCOUNTER 2022-04-06 19:03 | Emergency (ER) | payer OTHER, SELFPAY ==
--- NOTE | ~2022-04-06 | CT_ITS ---
EXAMINATION: CT abdomen pelvis w con DATE: 04/06/2022 22:10 INDICATION: Bilateral flank pain, dysuria. Low back pain. Nausea. TECHNIQUE: Computed tomography (CT) of the abdomen and pelvis was performed with 100 CC Omnipaque 350 intravenous contrast. Automated exposure control and iterative reconstruction technique were employe d. Exam dose: 1133.50 mGy-cm total exam DLP. COMPARISON: 01/02/2020 abdomen pelvis FINDINGS: The lung bases are clear. Normal heart size. No pericardial or pleural effusion. The liver, gallbladder, bile ducts, spleen, pancreas, pancreatic duct, and adrenal glands and kidneys are unremarkable. No urinary tract calculus or hydroureteronephrosis is detected. Uterus, adnexal areas and urinary bladder are unremarkable. Normal caliber of the abdominal aorta. No intraperitoneal or retroperitoneal or pelvic mass lesion or adenopathy or ascites. Normal appendix. No bowel obstruction, bowel wall thickening, pneumatosis or intraperitoneal free air . Bilateral L5 pars interarticularis defects. Included skeletal structures are otherwise unremarkable. IMPRESSION: No urinary tract calculus or hydroureteronephrosis Bilateral L5 spondylolysis Reviewed, dictated and finalized at Location [facility]. Reviewed, dictated and finalized at location A. 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
[2022-04-06 19:34] VITALS: BP 131/81; PULSE 115; RESP 18; TEMP 36.6; O2SAT 100
--- NOTE | 2022-04-06 20:28 | ED.FEMALEGU ---
HPI - Female Genitourinary General Chief complaint: Urogenital-Female Stated complaint: Dizzy, low back pain, UTI started abx yest Time Seen by Provider: 04/06/22 20:01 History of Present Illness HPI Narrative: Patient is a 31-year-old female here for evaluation of left flank pain for the past day. Patient states that she has chronic back pain but it is worse than usual over the past day. She saw her primary Doctor 2 days ago for dysuria and was diagnosed with a UTI. She is on day 1 of Macrobid. She denies any fevers, chills, vomiting but does report some nausea. Related Data Home Medications Medication Instructions Recorded Confirmed amitriptyline 25 mg tablet 25 mg PO DAILY 11/05/21 01/02/22 lisinopril 10 1 tablet PO DAILY 11/05/21 01/02/22 mg-hydrochlorothiazide 12.5 mg tablet sumatriptan succinate 50 mg tablet 50 mg PO DIRECTED 11/05/21 01/02/22 Allergies Allergy/AdvReac Type Severity Reaction Status Date / Time amoxicillin [From Amoxil] Allergy Unknown Rash Verified 04/06/22 20:09 prochlorperazine AdvReac Intermediate Muscle Verified 04/06/22 20:09 [From Compazine] Spasms PMFSH Past Medical History Medical History HTN (hypertension) Migraine UTI (urinary tract infection), bacterial Surgical History Surgical History No significant past surgical history Family History Family History Other Asthma Lung cancer Social History Social History Smoking status: Never smoker Second hand tobacco smoke exposure: No Alcohol intake: never Substance use type: does not use Occupation/Education: occupation Gender identity (if verbalized by the patient): Female Course Vital Signs Vital signs: Vital Signs Temperature 97.9 F 04/06/22 19:34 Pulse Rate 115 H 04/06/22 19:34 Respiratory Rate 18 04/06/22 19:34 Blood Pressure 131/81 04/06/22 19:34 Pulse Oximetry 100 04/06/22 19:34 Oxygen Delivery Room Air 04/06/22 19:34 Temperature 97.9 F 04/06/22 19:34 Pulse Rate 84 04/06/22 22:58 Respiratory Rate 16 04/06/22 22:58 Blood Pressure 132/86 04/06/22 22:58 Pulse Oximetry 99 04/06/22 22:58 Oxygen Delivery Room Air 04/06/22 19:34 MDM - Female Genitourinary MDM Narrative Medical decision making narrative: 31-year-old female here for evaluation of left flank pain and urinary symptoms over the past several days, currently being treated by her primary care doctor for UTI with Macrobid. She is nontoxic in appearance, slightly tachycardic to 115 which did normalize after IV fluid intervention. Her white count is 11.0. Her lactic acid is negative. Kidney function is normal. UA does show evidence of UTI with 2+ bacteria, 6-10 red blood cells and 1+ leuks. Imaging of the abdomen pelvis was obtained given flank tenderness which was negative for pyelonephritis or kidney stones. Patient feeling improved in the ED after fluids and Tylenol. Encouraged her to continue her Macrobid as prescribed by her PCP. Return precautions were discussed and she voiced understanding. Lab Data 04/06/22 20:25 04/06/22 20:25 Labs: Lab Results 04/06/22 04/06/22 04/06/22 Range/Units 20:25 20:25 20:25 WBC 11.0 H (4.5-10.0) K/mm3 RBC 4.47 (4.2-5.4) M/mm3 Hgb 13.0 (12.0-15.0) g/dL Hct 38.4 (37.0-47.0) % MCV 85.9 (80-100) fl MCH 29.1 (26-34) pg MCHC 33.9 (32-36) g/dl RDW 12.3 (11.5-14.5) % Plt Count 303 (150-375) k/mm3 MPV 9.5 (7.4-10.4) fl Immature Gran % (Auto) 0.4 (0-0.5) % Neut % (Auto) 64.1 (45.5-73.1) % Lymph % (Auto) 28.5 (18.3-44.2) % [place] % (Auto) 6.3 (2.6-8.5) % Eos % (Auto) 0.3 (0-4.4) % Baso % (Auto) 0.4 (0.2-1.2) % Lymph # (Auto) 3.15
[2022-04-06 20:36] LABS: Basophils Percent Auto 0.4 % (0.2-1.2); Eosinophils Percent Auto 0.3 % (0-4.4); Hematocrit 38.4 % (37.0-47.0); Immature Granulocyte Absolute 0.04 K/mm3 (0.00-0.031); Immature Granulocyte Percent A 0.4 % (0-0.5); Lymphocytes Absolute Auto 3.15 K/mm3 (0.9-3.2); Lymphocytes Percent Auto 28.5 % (18.3-44.2); Mean Corpuscular HGB Conc 33.9 g/dl (32-36); Mean Corpuscular Hemoglobin 29.1 pg (26-34); Mean Corpuscular Volume 85.9 fl (80-100); Mean Platelet Volume 9.5 fl (7.4-10.4); Monocytes Absolute Auto 0.7 K/mm3 (0.1-0.6); Monocytes Percent Auto 6.3 % (2.6-8.5); Neutrophils Absolute Auto 7.1 K/mm3 (1.3-6.7); Neutrophils Percent Auto 64.1 % (45.5-73.1); Platelet Count Result 303 k/mm3 (150-375); Red Blood Count 4.47 M/mm3 (4.2-5.4); Red Cell Distribution Width 12.3 % (11.5-14.5)
[2022-04-06 20:55] LABS: Alanine Aminotransferase 26 U/L (6-35); Albumin Level 4.6 g/dL (3.5-5.1); Alkaline Phosphatase 95 U/L (38-126); Anion Gap 10 mmol/L (8-16); Aspartate Amino Transferase 28 U/L (14-36); Bilirubin,Total 0.6 mg/dL (0.2-1.3); Blood Urea Nitrogen 9 mg/dL (7-17); Calcium 9.3 mg/dL (8.4-10.2); Carbon Dioxide 25 mmol/L (22-30); Chloride 98 mmol/L (98-107); Estimated Glomerular Filt Rate > 60; Glucose 102 mg/dL (65-110); Potassium 3.5 mmol/L (3.4-5.0); Sodium 133 mmol/L (137-145)
[2022-04-06] MEDS: SODIUM CHLORIDE 0.9% IV 1,000 ML 999 ML IV CONT (20:59)
[2022-04-06 21:07] LABS: Appearance Urine Cloudy (Clear); Bacteria Urine 2+ /hpf; Bilirubin Urine Negative (Negative); Blood Urine Negative (Negative); Color Urine Yellow (Yellow); Glucose Urine UA Negative (Negative); Ketones Urine Negative (Negative); Leukocyte Esterase Ur 1+ LEU/UL (Negative); Need Manual Microscopic Reviewed; Nitrate Urine Negative (Negative); Non Pathogenic Casts 0-2; Protein Urine Negative (Negative); Specific Grav Ur 1.018 (1.001-1.035); Squamous Epithelial Cell Urine Moderate /hpf (Few); Urobilinogen Urine 0.2 mg/dL (<2.0)
[2022-04-06 21:10] LABS: Add Urine Microscopic? YES
[2022-04-06 21:13] LABS: Lactic Acid Reflex 1.5 mmol/L (0.7-2.0)
[2022-04-06 22:58] VITALS: BP 132/86; PULSE 84; RESP 16; O2SAT 99
== END 2022-04-06 22:58 | disposition home or self-care (01) ==
PROVIDERS: Emergency Provider Physician Assistant; PCP Physician Assistant
DX: N39.0 Urinary tract infection, site not specified (principal); I10 Essential (primary) hypertension
CPT/HCPCS: 36415; 74177; 80053; 81001; 81025; 83605; 85025; 96365; 96366; 99284; J0131; J7030; Q9967

== ENCOUNTER 2022-07-31 08:17 | Emergency (ER) | payer OTHER, SELFPAY ==
--- NOTE | ~2022-07-31 | CT_ITS ---
EXAMINATION: CT abdomen pelvis w con DATE: 07/31/2022 09:47 INDICATION: Right lower quadrant pain TECHNIQUE: Computed tomography (CT) of the abdomen and pelvis was performed with 100 cc Omnipaque 350 intravenous contrast. The dose-length product was 1206.12 mGy-cm. Automated exposure control and ite rative reconstruction technique were employed. COMPARISON: CT dated 04/06/2022. FINDINGS: There is a 4 cm left adnexal cyst, likely ovarian. The lung bases are unremarkable. Heart s ize normal. No pleural or pericardial effusion. The liver, spleen, pancreas, adrenal glands and kidne ys are unremarkable. Normal appendix. Nonobstructive bowel gas pattern. No significant vascular abnor mality. No lymphadenopathy. No acute osseous abnormality. No free air or free fluid. IMPRESSION: 1. Left adnexal cyst measuring 4 cm, likely ovarian. Reviewed, dictated and finalized at location []
--- NOTE | ~2022-07-31 | US_ITS ---
Pelvic ultrasound. Clinical History: Pelvic pain Technique: Realtime transabdominal scanning of the pelvis was performed. Color flow Doppler and Doppl er spectral analysis were performed. Findings: The uterus is anteverted. The endometrial stripe has a thickness of 4 mm. No focal mass is identified. The right ovary measures 3.7 x 2.0 x 2.1 cm. No significant right ovarian or adnexal mass is seen. The left ovary measures 5.4 x 3.8 x 4.4 cm. Left ovarian cyst measures approximately 2.7 cm in diamet er. Vascular flow present in both ovaries on Doppler spectral analysis. There is no evidence of free fluid in the cul de sac. Impression: 2.7 cm left ovarian cyst. Reviewed, dictated and finalized at [facility]. Impression: 2.7 cm left ovarian cyst.
[2022-07-31 08:27] VITALS: BP 115/74; BP 124/80; PULSE 107; PULSE 112; RESP 16; RESP 18; TEMP 37; O2SAT 100
[2022-07-31 08:56] LABS: Basophils Percent Auto 0.3 % (0.2-1.2); Eosinophils Percent Auto 0.1 % (0-4.4); Hematocrit 38.7 % (37.0-47.0); Immature Granulocyte Absolute 0.02 K/mm3 (0.00-0.031); Immature Granulocyte Percent A 0.3 % (0-0.5); Lymphocytes Percent Auto 34.4 % (18.3-44.2); Mean Corpuscular HGB Conc 33.6 g/dl (32-36); Mean Corpuscular Hemoglobin 29.1 pg (26-34); Mean Corpuscular Volume 86.8 fl (80-100); Mean Platelet Volume 9.5 fl (7.4-10.4); Monocytes Absolute Auto 0.5 K/mm3 (0.1-0.6); Monocytes Percent Auto 7.4 % (2.6-8.5); Neutrophils Absolute Auto 4.2 K/mm3 (1.3-6.7); Neutrophils Percent Auto 57.5 % (45.5-73.1); Platelet Count Result 339 k/mm3 (150-375); Red Blood Count 4.46 M/mm3 (4.2-5.4); Red Cell Distribution Width 12.7 % (11.5-14.5); White Blood Count 7.3 K/mm3 (4.5-10.0)
[2022-07-31 09:02] LABS: Appearance Urine Clear (Clear); Bacteria Urine 1+ /hpf; Bilirubin Urine Negative (Negative); Blood Urine 3+ (Negative); Color Urine Yellow (Yellow); Glucose Urine UA Negative (Negative); Ketones Urine Trace mg/dL (Negative); Leukocyte Esterase Ur 2+ LEU/UL (Negative); Nitrate Urine Negative (Negative); Non Pathogenic Casts 0-2; Protein Urine Trace mg/dL (Negative); RBC Urine 0-2 /hpf (0-2); Specific Grav Ur 1.028 (1.001-1.035); Squamous Epithelial Cell Urine None seen /hpf (Few); WBC Urine 21-50 /hpf
[2022-07-31 09:06] LABS: Alanine Aminotransferase 30 U/L (6-35); Albumin Level 4.2 g/dL (3.5-5.1); Alkaline Phosphatase 82 U/L (38-126); Anion Gap 7 mmol/L (8-16); Aspartate Amino Transferase 28 U/L (14-36); Bilirubin,Total 0.4 mg/dL (0.2-1.3); Blood Urea Nitrogen 9 mg/dL (7-17); Calcium 8.6 mg/dL (8.4-10.2); Carbon Dioxide 28 mmol/L (22-30); Chloride 103 mmol/L (98-107); Estimated Glomerular Filt Rate > 60; Glucose 108 mg/dL (65-110); Lipase 123 U/L (23-300); Potassium 3.3 mmol/L (3.4-5.0); Sodium 138 mmol/L (137-145)
[2022-07-31] MEDS: MORPHINE SULFATE (*CRX) 4 MG/ML INJ IV PUSH (09:12)
[2022-07-31 09:29] LABS: Add Urine Microscopic? YES
[2022-07-31 09:58] VITALS: BP 135/81; PULSE 105; RESP 18; O2SAT 96
--- NOTE | 2022-07-31 10:11 | ED.GENADULT ---
HPI - General Adult General Chief complaint: Abdominal Pain Stated complaint: ABD pain Time Seen by Provider: 07/31/22 08:31 History of Present Illness HPI narrative: Patient is a 31-year-old female who presents ER with lower abdominal pain. Reports it began earlier in the week and she thought was related to her menstrual period. However symptoms of continued. She has foul-smelling urine with some red streaking. No vaginal discharge. No concern for STI. Pain mainly in the right lower quadrant denies fevers or chills or sweats. No alleviating factors. Related Data Home Medications Medication Instructions Recorded Confirmed amitriptyline 25 mg tablet 25 mg PO DAILY 11/05/21 01/02/22 lisinopril 10 1 tablet PO DAILY 11/05/21 01/02/22 mg-hydrochlorothiazide 12.5 mg tablet sumatriptan succinate 50 mg tablet 50 mg PO DIRECTED 11/05/21 01/02/22 Allergies Allergy/AdvReac Type Severity Reaction Status Date / Time amoxicillin [From Amoxil] Allergy Unknown Rash Verified 07/31/22 08:50 prochlorperazine AdvReac Intermediate Muscle Verified 07/31/22 08:50 [From Compazine] Spasms Review of Systems Review of Systems: All systems reviewed & are unremarkable except as noted in HPI and below Constitutional: Constitutional: Denies chills, Denies fatigue and Denies fever(s) ENT: Denies nasal congestion and Denies sore throat Cardiovascular: Cardiovascular: Denies chest pain, Denies rapid heart rate and Denies radiating jaw, neck or arm pain Gastrointestinal: Gastrointestinal: Reports abdominal pain, Denies diarrhea, Denies nausea and Denies vomiting Genitourinary: Genitourinary: Denies abnormal vaginal bleeding, Reports hematuria, Denies nocturia, Reports dysuria, Reports pelvic pain and Denies flank pain PMFSH Past Medical History Medical History HTN (hypertension) Migraine UTI (urinary tract infection), bacterial Surgical History Surgical History No significant past surgical history Family History Family History Other Asthma Lung cancer Social History Social History Smoking status: Never smoker Second hand tobacco smoke exposure: No Alcohol intake: never Substance use type: does not use Occupation/Education: occupation Gender identity (if verbalized by the patient): Female Exam Narrative: GENERAL: Well-appearing, well-nourished, and in no acute distress. HEAD: Normocephalic, atraumatic. ENT: Mucous membranes moist. NECK: Supple. CHEST: Clear to auscultation. No respiratory distress. HEART: Tachycardic and regular. Normal peripheral pulses. ABDOMEN: Soft, [place] tender to palpation right lower quadrant with mild guarding, nondistended. EXTREMITIES: Normal range of motion. No edema. SKIN: Warm, dry, no rash. NEURO: Alert and oriented x3. PSYCH: Normal mood and affect. Course Course Emergency Course: Patient resting comfortably. Informed of results. Left-sided ovarian cyst. Urine consistent with infection. Will treat with antibiotics for home. No evidence of appendicitis or kidney stone. No ovarian torsion. Vital Signs Vital signs: Vital Signs Temperature 98.6 F 07/31/22 08:27 Pulse Rate 107 H 07/31/22 08:27 Respiratory Rate 16 07/31/22 08:27 Blood Pressure 124/80 07/31/22 08:27 Pulse Oximetry 100 07/31/22 08:27 Oxygen Delivery Room Air 07/31/22 08:27 Temperature 98.6 F 07/31/22 08:27 Pulse Rate 105 H 07/31/22 09:58 Respiratory Rate 18 07/31/22 09:58 Blood Pressure 135/81 07/31/22 09:58 Pulse Oximetry 96 07/31/22 09:58 Oxygen Delivery Room Air 07/31/22 08:27 Medical Decision Making Vital Signs Vital Signs: Vital Signs Temperature 98.6 F 07/31/22 08:27 Pulse Rate 107 H 07/31/22 08:27 R
[2022-07-31] MEDS: ONDANSETRON INJ 4 MG/2 ML VIAL IV PUSH (10:23)
== END 2022-07-31 11:33 | disposition home or self-care (01) ==
PROVIDERS: Emergency Provider Emergency Medicine; PCP Physician Assistant
DX: N39.0 Urinary tract infection, site not specified (principal); I10 Essential (primary) hypertension; R10.2 Pelvic and perineal pain; N83.202 Unspecified ovarian cyst, left side
CPT/HCPCS: 36415; 74177; 76830; 76856; 80053; 81001; 81025; 83690; 85025; 87086; 96374; 96375; 99284; J2270; J2405; Q9967

== ENCOUNTER 2022-10-03 19:32 | Emergency (ER) | payer OTHER, SELFPAY ==
--- NOTE | ~2022-10-03 | CT_ITS ---
EXAMINATION: CT abdomen pelvis w con DATE: 10/03/2022 22:26 INDICATION: Abdominal pain TECHNIQUE: Computed tomography (CT) of the abdomen and pelvis was performed with 100 mL Omnipaque-350 intravenous contrast. Automated exposure control and iterative reconstruction technique were employe d. The dose-length product was 1251.88 mGy-cm. COMPARISON: 07/31/2022 FINDINGS: Lung bases are clear. Heart size is normal. No pericardial or pleural effusion. Liver, gallbladder, s pleen, pancreas, bilateral adrenal glands and kidneys are normal. Bowels including the appendix are n ormal. Bladder, uterus and right adnexa are unremarkable. 2.6 cm left adnexal cyst/follicle. No free intraperitoneal gas or fluid. No pathologically enlarged abdominal or pelvic lymphadenopathy. 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 IMPRESSION: 1. 2.6 cm left adnexal cyst. No acute intra-abdominal/pelvic process. Reviewed, dictated and finalized at location A.
[2022-10-03 19:34] VITALS: BP 127/87; PULSE 104; RESP 16; TEMP 36.4; O2SAT 100
[2022-10-03 19:57] LABS: Basophils Percent Auto 0.5 % (0.2-1.2); Eosinophils Percent Auto 0.1 % (0-4.4); Hematocrit 36.9 % (37.0-47.0); Hemoglobin 12.5 g/dL (12.0-15.0); Immature Granulocyte Absolute 0.02 K/mm3 (0.00-0.031); Immature Granulocyte Percent A 0.2 % (0-0.5); Lymphocytes Absolute Auto 3.26 K/mm3 (0.9-3.2); Mean Corpuscular HGB Conc 33.9 g/dl (32-36); Mean Corpuscular Hemoglobin 29.3 pg (26-34); Mean Corpuscular Volume 86.4 fl (80-100); Mean Platelet Volume 9.4 fl (7.4-10.4); Monocytes Absolute Auto 0.5 K/mm3 (0.1-0.6); Monocytes Percent Auto 5.9 % (2.6-8.5); Neutrophils Absolute Auto 4.5 K/mm3 (1.3-6.7); Neutrophils Percent Auto 54.3 % (45.5-73.1); Platelet Count Result 347 k/mm3 (150-375); Red Blood Count 4.27 M/mm3 (4.2-5.4); Red Cell Distribution Width 12.5 % (11.5-14.5); White Blood Count 8.4 K/mm3 (4.5-10.0)
[2022-10-03 19:59] LABS: Appearance Urine Cloudy (Clear); Bacteria Urine 1+ /hpf; Bilirubin Urine Negative (Negative); Blood Urine 2+ (Negative); Color Urine Yellow (Yellow); Glucose Urine UA Negative (Negative); Ketones Urine Negative (Negative); Leukocyte Esterase Ur 2+ LEU/UL (Negative); Nitrate Urine Negative (Negative); Non Pathogenic Casts 0-2; Protein Urine Negative (Negative); Specific Grav Ur 1.027 (1.001-1.035); Squamous Epithelial Cell Urine Moderate /hpf (Few); pH Urine 6.5 (5.0-9.0)
[2022-10-03 20:02] LABS: Add Urine Microscopic? YES
[2022-10-03 20:06] LABS: Alanine Aminotransferase 33 U/L (6-35); Albumin Level 4.3 g/dL (3.5-5.1); Alkaline Phosphatase 83 U/L (38-126); Anion Gap 6 mmol/L (8-16); Aspartate Amino Transferase 30 U/L (14-36); Bilirubin,Total 0.4 mg/dL (0.2-1.3); Blood Urea Nitrogen 10 mg/dL (7-17); Calcium 9.1 mg/dL (8.4-10.2); Carbon Dioxide 27 mmol/L (22-30); Chloride 103 mmol/L (98-107); Estimated Glomerular Filt Rate > 60; Glucose 107 mg/dL (65-110); Lipase 154 U/L (23-300); Potassium 3.4 mmol/L (3.4-5.0); Sodium 136 mmol/L (137-145)
[2022-10-03 21:20] VITALS: BP 123/86; PULSE 101; RESP 15; O2SAT 100
[2022-10-03] MEDS: KETOROLAC 30 MG/ML VIAL (*BKC) IV PUSH (23:08)
[2022-10-03] MEDS: ONDANSETRON INJ 4 MG/2 ML VIAL IV PUSH (23:08)
[2022-10-03] MEDS: SODIUM CHLORIDE 0.9% IV 1,000 ML 999 ML IV CONT (23:39)
[2022-10-04] MEDS: NITROFURANTOIN MONOHYD MACROCR 100 MG CAP PO (00:36)
[2022-10-04 01:02] VITALS: BP 117/87; PULSE 84; RESP 15; O2SAT 100
--- NOTE | 2022-10-04 03:06 | ED.ABDPAIN ---
HPI - Abdominal Pain General Chief Complaint: Abdominal Pain Stated Complaint: abd pain Time Seen by Provider: 10/03/22 21:06 Source: patient Mode of arrival: ambulatory Limitations: no limitations History of Present Illness HPI narrative: 32-year-old female presents today with complaints of left-sided abdominal pain x2 days. States she does have some nausea but no vomitings. Does endorse a headache also. Recent history of a left adnexal/ovarian cyst that was 4 cm diagnosed here 07/31/2022. Patient denies any fevers, body aches, chills, denies any urinary symptoms such as dysuria, foul-smelling urine, urgency. MD elicited complaint: abdominal pain Related Data Home Medications Medication Instructions Recorded Confirmed amitriptyline 25 mg tablet 25 mg PO DAILY 11/05/21 01/02/22 lisinopril 10 1 tablet PO DAILY 11/05/21 01/02/22 mg-hydrochlorothiazide 12.5 mg tablet sumatriptan succinate 50 mg tablet 50 mg PO DIRECTED 11/05/21 01/02/22 Allergies Allergy/AdvReac Type Severity Reaction Status Date / Time amoxicillin [From Amoxil] Allergy Unknown Rash Verified 10/03/22 19:34 prochlorperazine AdvReac Intermediate Muscle Verified 10/03/22 19:34 [From Compazine] Spasms Review of Systems Review of Systems: All systems reviewed & are unremarkable except as noted in HPI and below PMFSH Past Medical History Medical History HTN (hypertension) Migraine UTI (urinary tract infection), bacterial Surgical History Surgical History No significant past surgical history Family History Family History Other Asthma Lung cancer Social History Social History Smoking status: Never smoker Second hand tobacco smoke exposure: No Alcohol intake: never Substance use type: does not use Occupation/Education: occupation Gender identity (if verbalized by the patient): Female Exam Const: General: cooperative, healthy appearing, comfortable, no acute distress and well developed Orientation/consciousness: patient oriented x3 HENMT: Head: normal to inspection Eyes: General: appearance normal, both eyes and all related structures Resp: Effort & Inspection: normal respiratory effort and able to speak in complete sentences Auscultation: clear to auscultation bilaterally Cardio: Rate: regular rate Rhythm: regular rhythm Heart sounds: S1 normal heart sound present and S2 normal heart sound present GI: GI Palp: Yes Soft to palpation and Yes Tenderness to palpation present (GI) (Generalized) Auscultation: normal bowel sounds Neuro: General: patient oriented x3 Course Course Emergency Course: Patient feeling better after IV fluids and Toradol. Discussed findings. She is aware that adnexal mass persist but is smaller at this time. Also aware her urinalysis is consistent with UTI. Previously treated with Macrobid with resolution. Will discharge home with Macrobid plan follow-up with OB and primary care. Patient is in agreement with plan of care and voiced understanding. Vital Signs Vital signs: Vital Signs Temperature 97.5 F L 10/03/22 19:34 Pulse Rate 104 H 10/03/22 19:34 Respiratory Rate 16 10/03/22 19:34 Blood Pressure 127/87 10/03/22 19:34 Pulse Oximetry 100 10/03/22 19:34 Oxygen Delivery Room Air 10/03/22 19:34 Temperature 97.5 F L 10/03/22 19:34 Pulse Rate 84 10/04/22 01:02 Respiratory Rate 15 10/04/22 01:02 Blood Pressure 117/87 10/04/22 01:02 Pulse Oximetry 100 10/04/22 01:02 Oxygen Delivery Room Air 10/03/22 19:34 MDM - Abdominal Pain MDM Narrative Medical decision making narrative: 32-year-old female HPI as noted. Differentials to include CBC, CMP, urinalysis, urinary test, CT of the abdomen pelvis with contrast.
== END 2022-10-04 01:03 | disposition home or self-care (01) ==
PROVIDERS: Emergency Medicine; Emergency Provider Nurse Practitioner Family; PCP Physician Assistant
DX: N39.0 Urinary tract infection, site not specified (principal); N94.89 Other specified conditions associated with female genital organs and menstrual cycle; I10 Essential (primary) hypertension
CPT/HCPCS: 36415; 74177; 80053; 81001; 81025; 83690; 85025; 87086; 96361; 96374; 96375; 99284; A9270; J1885; J2405; J7030; Q9967

== ENCOUNTER 2023-01-01 16:00 | Outpatient (CLI) | payer OTHER, SELFPAY ==
--- NOTE | ~2023-01-01 | US_ITS ---
EXAMINATION: US pelvic complete DATE: 01/01/2023 17:16 INDICATION: CYST OF OVARY 07/31/2022; CT abdomen pelvis 10/03/2022 TECHNIQUE: Multiple transabdominal sonographic images of the pelvis were obtained. COMPARISON: None. FINDINGS: Uterus: 9.7 x 3.7 x 5.0 cm. Endometrial complex measures 3 mm. Right Ovary: 4.1 x 2.7 x 5.0 cm. Vascular flow is present. Multiple simple cysts, the largest measure s 2.2 cm. Left Ovary: 3.2 x 1.9 x 1.8 cm. Vascular flow is present. 1.2 cm simple cyst. There is no free fluid in the pelvis. IMPRESSION: Normal transabdominal pelvic sonogram findings. 1.2 cm simple cyst or dominant follicle now seen in the left ovary (interval decrease in size or reso lution of the previously described 2.7 cm cyst). Multiple simple cysts in the right ovary measuring u p to 2.2 cm. Reviewed, dictated and finalized at location [facility]. [employer] IMPRESSION: Normal transabdominal pelvic sonogram findings. 1.2 cm simple cyst or dominant follicle now seen in the left ovary (interval de crease in size or resolution of the previously described 2.7 cm cyst). Multiple simple cysts in the right ovary measuring up to 2.2 cm.
== END 2023-01-01 16:01 | disposition home or self-care (01) ==
PROVIDERS: PCP Physician Assistant
DX: N83.202 Unspecified ovarian cyst, left side (principal)
CPT/HCPCS: 76856

== ENCOUNTER 2023-02-07 11:56 | Emergency (ER) | payer OTHER, SELFPAY ==
[2023-02-07 12:07] VITALS: BP 132/81; PULSE 94; RESP 16; TEMP 36.9; O2SAT 99
--- NOTE | 2023-02-07 13:35 | ED.NAVMDI ---
HPI - Nausea/Vomiting/Diarrhea General Chief complaint: Nausea/Vomiting/Diarrhea Stated complaint: throwing up, chest tight feels BP is up Source: patient and RN notes reviewed Mode of arrival: ambulatory Limitations: no limitations History of Present Illness HPI Narrative: 32-year-old female presented for complaint of a few episodes of vomiting this week with decreased appetite and nausea. Endorses abdominal cramping after eating. She states she feels like she has heartburn and some chills, and both arms feel sore at times. Symptoms are worsen after eating. Took Tums. Menstrual cycles are irregular after starting do oral PCP, she states she took several negative tests last month. Related Data Home Medications Medication Instructions Recorded Confirmed amitriptyline 25 mg tablet 25 mg PO DAILY 11/05/21 02/07/23 lisinopril 10 1 tablet PO DAILY 11/05/21 02/07/23 mg-hydrochlorothiazide 12.5 mg tablet sumatriptan succinate 50 mg tablet 50 mg PO DIRECTED 11/05/21 02/07/23 norethindrone (contraceptive) 0.35 0.35 mg PO DAILY 02/07/23 02/07/23 mg tablet Allergies Allergy/AdvReac Type Severity Reaction Status Date / Time amoxicillin [From Amoxil] Allergy Unknown Rash Verified 02/07/23 12:29 prochlorperazine AdvReac Intermediate Muscle Verified 02/07/23 12:29 [From Compazine] Spasms Review of Systems Review of Systems: CONSTITUTIONAL: reports body aches ENT: Denies rhinorrhea, congestion CARDIOVASCULAR: Denies chest pain, palpitations, or edema. RESPIRATORY: Denies cough or dyspnea. GASTROINTESTINAL: Endorses nausea, vomiting Denies abdominal pain, diarrhea, hematochezia, melena, hematemesis GENITOURINARY: Denies dysuria, hematuria, or CVA tenderness. SKIN: Denies rash, itching, or wounds. MUSCULOSKELETAL: Denies back pain, joint pain, or myalgia. NEUROLOGIC: Denies headache, numbness, tingling, or weakness. All systems reviewed & are unremarkable except as noted in HPI and below PMFSH Past Medical History Medical History HTN (hypertension) Migraine UTI (urinary tract infection), bacterial Surgical History Surgical History No significant past surgical history Family History Family History Other Asthma Lung cancer Social History Social History Smoking status: Never smoker Second hand tobacco smoke exposure: No Alcohol intake: never Substance use type: does not use Occupation/Education: occupation Gender identity (if verbalized by the patient): Female Comments At time of signature, I have reviewed and agree with nursing past medical, surgical, social and family history unless otherwise noted. Please see nursing chart for further information. There is no relevant family history pertinent to the presenting complaint Exam Narrative: GENERAL: Well-appearing, and in no acute distress. EYES: EOMI. Conjunctivae normal. ENT: Mucous membranes pink and moist. CHEST: No respiratory distress. Clear to auscultation. HEART: Regular rate and rhythm. No murmur appreciated. Normal peripheral pulses. ABDOMEN: abd soft, nondistended, normal active bowel sounds. Tender (mild) abdomen LLQ, No guarding, rebound tenderness, asymmetry EXTREMITIES: Normal range of motion. No edema. SKIN: Warm, dry, no rash. Capillary refill normal. Normal skin turgor. NEURO: No focal deficits. Alert and oriented x3. PSYCH: Normal affect. Course Course Emergency Course: Patient is aware of diagnosis, understands and agrees to treatment plan. Anticipatory guidance given. Patient agrees to follow-up as directed and is aware of reasons to seek care at the emergency department. Portions of this record may have been created with voice recognition software Level of C
== END 2023-02-07 14:11 | disposition home or self-care (01) ==
PROVIDERS: Emergency Provider Nurse Practitioner Family; PCP Physician Assistant
DX: R11.2 Nausea with vomiting, unspecified (principal); Z20.822 Contact with and (suspected) exposure to COVID-19; I10 Essential (primary) hypertension
CPT/HCPCS: 81025; 87426; 87804; 99213; C9803; G0463

== ENCOUNTER 2024-01-28 15:10 | Outpatient (CLI) | payer OTHER, SELFPAY ==
--- NOTE | ~2024-01-28 | XR_ITS ---
EXAMINATION: XR chest 2V DATE: 01/28/2024 15:23 INDICATION: Pneumonia. TECHNIQUE: Frontal and lateral views of the chest were obtained. COMPARISON: CT abdomen and pelvis 10/03/2022 FINDINGS: There is no pneumonia, pleural effusion, or pneumothorax. The heart size is normal IMPRESSION: 1. No acute cardiopulmonary disease. Reviewed, dictated and finalized at location [facility]. [employer]
== END 2024-01-28 15:11 | disposition home or self-care (01) ==
PROVIDERS: PCP Internal Medicine; Visit Provider Internal Medicine
DX: J18.9 Pneumonia, unspecified organism (principal)
CPT/HCPCS: 71046

== ENCOUNTER 2024-08-31 16:17 | Emergency (ER) | payer OTHER, SELFPAY ==
--- OUTSIDE RECORDS SUMMARY | 2024-08-31 16:19 | XMS_ITS | Data Portability ---
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 Plan of Treatment Reminders Order Date Submit Date Provider Last Modified By Organization Details Last Modified Time Details Appointments None recorded. Lab HbA1c (hemoglobi n A1c), blood 2023 024 [email or web address] In-Office Order, Internal Use Only DO Not Attach Compendium DO Not Attach Compendium, Do Not Delete/merge, [id number] 15:42:17 lipid panel, serum 2023 024 [facility], [address] [place] [address], [address], [place], [address], 4 15:33:32 magnesium, serum or plasma 2023 024 ATHENAFAX [facility], [address] [place] [address], [address], [place], [address], 4 15:34:42 vitamin B12 + folate, serum or blood 2023 024 [facility], [address] [place] [address], [address], [place], [address], 4 09:15:58 TSH, ultra-sens itive, serum 2023 024 [facility], [address], [address], [place], [address], 4 09:15:57 CMP, serum or plasma 2023 024 ATHENAFAX [facility], [address], [address], [place], [address], 4 15:34:42 CBC w/ auto diff 2023 024 [facility], [address], [address], [place], [address], 4 08:09:46 vitamin D, 25-hydroxy , total, serum 2023 024 [facility], [address], [address], [place], [address], 4 09:15:59 test, urine 2022 023 LIGNITE In-Office Order, Internal Use Only DO Not Attach Compendium DO Not Attach Compendium, Do Not Delete/merge, [id number] 3 14:33:42 culture, urine 2022 023 [facility], [address], [address], [place], [address], 3 03:36:34 culture, urine 2022 023 [facility], [address], [address], [place], [address], 3 07:15:09 Referral None recorded. Procedures None recorded. Surgeries None recorded. Imaging US, pelvis, transabdom inal + transvagin al 2022 023 [facility] [address], [place], [address], 3 09:21:17 Medication Orders amitriptyl ine 50 mg tablet 2023 024 [facility] [place], [address], 4 15:41:52 norethindr one (contracep tive) 0.35 mg tablet 2022 023 [facility], [address] [place], [address], 3 15:38:43 Patient TargetsNo targets recorded. Patient Instructions Encounter Date Encounter Id Patient Instructions Last Modified By Organization Details Last Modified Time 10/22/2022 [id number] A healthy lifestyle: care instructions [email or web address] Not available 10/22/2022 16:09:03 10/31/2022 [id number] A healthy lifestyle: care instructions Not available 10/31/2022 17:33:17 02/25/2023 [id number] A healthy lifestyle: care instructions Not available 02/25/2023 15:33:21 Reason for Referral None Reported. Results Created Date Observation Date Name Description Value Unit Range Abnormal Flag Note LastModifiedBy Organization Detail LastModifiedTime 09/10/1909/12/2022 URINE CULTU BARBIE YAÑEZ urine culture, routine Final report abnormal Not Available [facility] ([facility]) [address] [facility], [place], [address], 09/12/2022 07:15:08 09/10/19 23 09/12/2022 URINE CULTU REBARBIE result 1 Commen t abnormal Beta hemol ytic Strep tococ cus, group B 25,00 0-50, 000 colon y formi ng units per mL Penic illin and ampic illin are drugs of [facility] e for treat ment of beta- hemol ytic strep tococ lu infec tions . Susce ptibi lity testi ng of penic illin s and other beta- lacta m agent s appro jacbo by the FDA for treat ment of beta- hemol ytic strep tococ lu infec tions need not be perfo rmed routi argelia becau se nonsu scept ible isola karo are extre matt rare in any beta- hemol ytic strep tococ cus and have not been repor rosamaria for Strep tococ cus pyoge rosendo (grou p A). (CLSI ) Not Available [facility] ([facility]) [address] [place], [address], 09/12/2022 07:15:08 09/19/19 23 09/20/2022 URINE CULTU RE, ROUTI NE urine culture, routine Final report Not Available [facility] ([facility]) [address] [place], [address], 09/20/2022 03:36:34 09/19/19 23 09/20/2022 URINE CULTU RE, ROUTI NE result 1 Commen t Mixed uroge nital jamie 25,00 0-50, 000 colon y formi ng units per mL Not Available [facility] ([facility]) [address] [facility], [place], [address], 09/20/2022 03:36:34 11/05/19 23 11/04/2022 pregn fuad test, urine HCG negati ve Not Available In-Office Order Internal Use Only DO Not Attach Compendium DO Not Attach Compendium, Do Not Delete/merge, [id number] 10/31/2022 15:11:41 12/11/1912/12/2022 URINE CULTU RE, ROUTI NE urine culture, routine Final report Not Available [facility] ([facility]) [address] [place], [address], 12/12/2022 03:36:33 12/11/19 23 12/12/2022 URINE CULTU RE, ROUTI NE result 1 Commen t Mixed uroge nital jamie 10,00 0-25, 000 colon y formi ng units per mL Not Available [facility] ([facility]) [address] [facility] [place], [address], 12/12/2022 03:36:33 02/25/1902/26/2023 TSH RFX ON ABNOR MAL TO FREE T4 TSH 4.530 uIU/m L 0.450- 4.500 above high normal Not Available [facility] ([facility]) [address] [facility] [place], [address], 02/26/2023 09:15:57 02/25/19 24 02/26/2023 VITAM IN B12 AND FOLAT E vitamin B12 448 pg/mL 232-12 45 Not Available [facility] ([facility]) [address] [facility] [place], [address], 02/26/2023 09:15:58 02/25/1902/26/2023 VITAM IN B12 AND FOLAT E folate (folic acid), serum 7.8 NG/mL >3.0 A serum folat e isabella ntrat ion of less than 3.1 ng/mL is consi dered to repre sent clini lu defic iency . Not Available [facility] ([facility]) [address] [facility], [place], [address], 02/26/2023 09:15:58 02/25/1902/26/2023 HEMOG LOBIN A1C hemoglobin A1C 5.4 % 4.8-5. 6 Predi abete s: 5.7 - 6.4 Diabe karo: >6.4 Glyce tamika contr ol for adult s with diabe karo: <7.0 Not Available [facility] ([facility]) [address] [facility] [place], [address], 02/26/2023 09:15:58 02/25/1902/26/2023 VITAM IN D, 25-HY DROXY vitamin D, 25-hydroxy 9.8 NG/mL 30.0-1 00.0 below low normal Vitam in D defic iency has been defin ed by the Insti tute of Medic ine and an Endoc rine Socie ty pract ice guide line as a level of serum 25-OH vitam in D less than 20 ng/mL (1,2) . The Endoc rine Socie ty went on to furth er defin e vitam in D insuf ficie ncy as a level betwe en 21 and 29 ng/mL (2). 1. IOM (Inst itute of Medic ine). 2010. Dieta ry refer ence intzaira es for calci um and D. Shawn sorenson [place]: The [facility] Press . 2. Eladio gonsalves MF, Asa benítez [place], Bisch off-F errar i SU, et al. Evalu ation , treat ment, and preve ntion of vitam in D defic iency : an Endoc rine Socie ty clini lu pract ice guide line. JCEM. 2010; 96(7) :1911 -30. Not Available [facility] ([facility]) [address] [facility], [place], [address], 02/26/2023 09:15:59 02/25/19 24 02/26/2023 T4F T4,free (direct) 1.18 NG/dL 0.82-1 .77 Not Available [facility] ([facility]) [address] [facility], [place], [address], 02/26/2023 09:15:59 02/25/19 24 02/25/2023 HbA1c (hemo globi n A1c), blood HbA1c 5.2 Not Available In-Office Order Internal Use Only DO Not Attach Compendium DO Not Attach Compendium, Do Not Delete/merge, [id number] 02/25/2023 15:33:13 10/04/19 23 10/03/2022 CT, abdom en + pelvi s, w/ contr ast No observ ation record ed. [place] [address], [place], [address], 10/04/2022 09:57:04 01/02/20 23 01/01/2023 CT, abdom en + pelvi s, w/ contr ast No observ [facility]ion [facility] [address], [place], [address], 01/03/2023 10:02:04 01/04/20 23 01/01/2023 US, pelvi s, trans abdom inal + trans vagin al No observ ation record ed. [facility] [address], [place], [address], 01/03/2023 10:33:43 Result Notes None recorded. Problems Name Problem SNOMED Code Status Onset Date Resolution Date Notes Provider Name and Address Organization Details Recorded Time Nausea and vomiting 31832684 Completed scripts for doxylami ne, B6, ondanset rita & prometha zine issued 12/15/17 Compa winkler [place] - [facility] 9 14:07:29 Low lying placenta 080924005 Completed noted on 03/24 (20w0d) u/s; follow-u p schedule d for 4wks; resolved as of 04/21 (24w0d) scan [facility] [place] - [place] 9 14:07:29 Anemia of pregnanc y 51487065 Completed [facility] [place] 9 14:07:29 Restless legs 40119779 Active Not Available [facility] 4 23:38:52 Pregnanc y 80428028 Completed 201708/28/2018 Compa [place] - [place] 9 14:07:31 Migraine 48332047 Active 2019 Not Available [facility] 4 23:38:52 [facility] 47043981 Active 2020 Not Available [facility] 4 23:38:52 Obesity 989179188 Active 2023 Not Available [facility] 4 23:38:52 Fatigue 62561707 Active 2023 Not Available [facility] 4 23:38:52 Migraine with aura 7690627 Active 2023 Not Available [facility] 4 23:38:52 Problem Notes None recorded. Procedures Surgical History Date Name Laterality Status Provider Name and Address Organization Details Recorded Time 3 Control Implant Removal completed CARISSA LEWIS Attn: Accounting,[address] [facility], [place], [address], [facility] 10/31/2022 17:31:23 9 Control Implant Insertion completed Comp[facility] 08/28/2018 14:03:49 8 Control Implant Removal completed Comp[facility] 09/10/2017 10:52:30 Imaging Results None recorded. Procedure Notes None recorded. Medical Equipment None Reported. Allergies Allergen ID Allergen Name Allergen Category Reaction Reaction Severity Criticality Documentation Date Start Date Code Code System Note Provider Name and Address Organization Details Recorded Time 767135 Compazine medicatio n Not available Not available Not available 10/27/2020 85354 6 RxNorm dysto renate react ion in er fter given for migra rosendo CARISSA DEL VALLE Attn: Accountin g,[address] [facility], [place], [address], [facility] - SI 10:47:59 99223 amoxicill in medicatio n rash Not available Not available 01/03/2015 723 RxNorm Becky Bet[place]our [place], [place] - [place] 5 12:14:15 Medications Name Sig Start Date Stop Date Status Note LastModified by Organization Details LastModified Time venlafaxine ER 37.5 mg capsule,ext ended release 24 hr TAKE 1 CAPSULE BY MOUTH ONCE DAILY 03/12 completed Not Available Not Available Not Available sulfamethox azole 400 mg-trimetho prim 80 mg tablet 08/28 completed Not Available Not Available Not Available hydrocodone 5 mg-acetamin ophen 325 mg tablet TAKE 1 TO 2 TABLETS BY MOUTH EVERY 4 TO 6 HOURS NEEDED FOR PAIN . DO NOT EXCEED 8 PER 24 HOURS 02/25 completed Not Available Not Available Not Available pyridoxine (vitamin B6) 25 mg tablet Take 1 tablet every day by oral route at bedtime. 08/28 completed Not Available Not Available Not Available ondansetron HCl 4 mg tablet TAKE 1 TABLET BY MOUTH EVERY 8 HOURS NEEDED FOR 4 DAYS 10/22 completed Not Available Not Available Not Available naproxen 250 mg tablet Take 1 tablet twice a day by oral route. 09/08 completed Not Available Not Available Not Available sumatriptan 50 mg tablet TAKE 1 TABLET BY MOUTH TWICE DAILY NEEDED active Not Available Not Available No t Available ciprofloxac in 500 mg tablet TAKE 1 TABLET BY MOUTH EVERY 12 HOURS FOR 7 DAYS 10/22 completed Not Available Not Available Not Available amitriptyli ne 50 mg tablet TAKE 1 TABLET BY MOUTH ONCE DAILY AT BEDTIME . APPOINTME NT REQUIRED FOR FUTURE REFILLS active Not Available Not Available No t Available Vitamin tablet Take 1 tablet every day by oral route. 08/28 completed Not Available Not Available Not Available amitriptyli ne 25 mg tablet TAKE 1 TABLET BY MOUTH ONCE DAILY FOR 90 DAYS 02/25 completed Not Available Not Available Not Available DOK 100 mg capsule 08/28 completed Not Available Not Available Not Available meclizine 25 mg tablet TAKE 1 TABLET BY MOUTH THREE TIMES DAILY FOR 15 DAYS 10/22 completed Not Available Not Available Not Available pantoprazol e 40 mg tablet,vandana yed release TAKE 1 TABLET BY MOUTH IN THE MORNING FOR 28 DAYS 02/25 completed Not Available Not Available Not Available ferrous sulfate 325 mg (65 mg iron) tablet Take 1 tablet every day by oral route. 09/08 completed Not Available Not Available Not Available lisinopril 10 mg tablet TAKE 1 TABLET BY MOUTH ONCE DAILY 03/14 completed Not Available Not Available Not Available promethazin e 25 mg tablet Take 1 tablet every 4-6 hours by oral route. 08/28 completed Not Available Not Available Not Available lisinopril 10 mg-hydrochl orothiazide 12.5 mg tablet TAKE 1 TABLET BY MOUTH ONCE DAILY. APPOINTME NT REQUIRED FOR FUTURE REFILLS. active Not Available Not Available No t Available polyethylen e glycol 3350 17 gram/dose oral powder Take 17 g twice a day by oral route as needed. 08/28 completed Not Available Not Available Not Available norethindro ne (contracept xin) 0.35 mg tablet TAKE 1 TABLET BY MOUTH ONCE DAILY, NEEDS APPOINTME NT FOR FURTHER REFILLS. active Not Available Not Available No t Available ondansetron 4 mg disintegrat ing tablet DISSOLVE 1 TABLET IN MOUTH EVERY 8 HOURS NEEDED FOR NAUSEA AND VOMITING active Not Available Not Available No t Available cefdinir 300 mg capsule 04/08 completed Not Available Not Available Not Available Unisom (doxylamine ) 25 mg tablet Take 0.5 tablets every day by oral route at bedtime. 08/28 completed Not Available Not Available Not Available docusate sodium 100 mg tablet Take 1 tablet twice a day by oral route. 08/28 completed Not Available Not Available Not Available naproxen 500 mg tablet TAKE 1 TABLET BY MOUTH TWICE DAILY NEEDED FOR PAIN 06/27 completed Not Available Not Available Not Available Phenadoz 25 mg rectal suppository Insert 1 supposito ry every 4-6 hours by rectal route as needed. 08/28 completed Not Available Not Available Not Available nitrofurant oin monohydrate /macrocryst als 100 mg capsule TAKE 1 CAPSULE BY MOUTH EVERY 12 HOURS WITH A MEAL FOR 7 DAYS 10/22 completed Not Available Not Available Not Available chlorhexidi ne gluconate 0.12 % mouthwash RINSE WITH ONE CAPFUL BY MOUTH FOR 1 MINUTE TWO TIMES A DAY AFTER BRUSHING AND FLOSSING AND SPIT, NO EATING OR DRINKING 30 MINUTES AFTER 02/25 completed Not Available Not Available Not Available Vitamin D3 125 mcg (5,000 unit) tablet Take 1 tablet every day by oral route for 90 days. 2023 active Not Available Not Available Not Avai lable Nexplanon 68 mg subdermal implant Inject 1 implant by subcutane ous route. 02/25 completed Not Available Not Available Not Available 28 mg iron-800 mcg tablet Take 1 tablet every day by oral route. 09/08 completed Not Available Not Available Not Available Classic 28 mg iron-800 mcg tablet 08/28 completed Not Available Not Available Not Available ID NOW COVID-19 Test Kit TEST DIRECTED TODAY 10/22 completed Not Available Not Available Not Available Vitals Date Recorded Body height Body mass index (BMI) Body weight Heart rate Respiratory rate Oxygen saturation Oxygen saturation in Arterial blood by Pulse oximetry Systolic And Diastolic Provider Name and Address Organization Details Last Updated DateTime 4 147.32 cm 41.8 kg/m2 26676.4 7 g 103 /min 16 /min 97 % 97 % 125/79 mm[Hg] Maty Diaz [facility] 14:56:50 Date Recorded Body height Body mass index (BMI) Body weight Systolic And Diastolic Provider Name and Address Organization Details Last Updated DateTime 10/22/2022 147.32 cm 42.9 kg/m2 82870.84 g 122/83 mm[Hg] Darline Brown MA [facility] 10/22/2022 14:32:07 Date Recorded Body height Body mass index (BMI) Body weight Heart rate Systolic And Diastolic Provider Name and Address Organization Details Last Updated DateTime 10/31/2022 147.32 cm 42.6 kg/m2 02317.44 g 101 /min 113/78 mm[Hg] Darline Brown MA [facility] 10/31/2022 14:59:06 Social History Question Answer Notes LastModified by Organizat ion Details LastModified Time Tobacco Smoking Status [facility] 12:14:15 Are You Blind Or Do You Have Difficulty Seeing? No Information n ot available 10/22/2022 Is Blood Transfusion Acceptable In An Emergency? Yes Information not available 09/10/2017 What Is Your Level Of Caffeine Consumption? Moderate Information not available 09/10/2017 How Much Tobacco Do You Chew? None Information not available 09/10/2017 In The 14 Days Before Symptom Onset, Have You Had Close Contact With A Laboratory-confirm ed COVID-19 While That Case Was Ill? No Information n ot available 06/05/2020 In The 14 Days Before Symptom Onset, Have You Had Close Contact With A Person Who Is Under Investigation For COVID-19 While That Person Was Ill? No Information not available 06/05/2020 Have You Been To An Area Known To Be High Risk For COVID-19? No Information not available 06/05/2020 Are You Deaf Or Do You Have Serious Difficulty Hearing? No Information not available 10/22/2022 What Type Of Diet Are You Following? REGULAR Information n ot available 09/10/2017 Which Illicit Or Recreational Drugs Have You Used? None Information not available 09/10/2017 Education 12 Information no t available 09/10/2017 Hard Of Hearing Or Deaf In One Or Both Ears? No Information not available 09/09/2019 Legally Blind In One Or Both Eyes? No Information no t available 09/09/2019 Live Alone Or With Others? With Others Information not available 09/09/2019 Do You Have A High School Diploma Or Higher Education? Yes Information no t available 06/27/2021 Do You Sometimes Have To Miss Your Medical Appointments Due To Difficult Getting Transportation? No Information not available 06/27/2021 Do You Feel Unfairly Treated Due To Things Such As Race, Age, Gender, Disability Or Some Other Reason? No Information not available 06/27/2021 Do You Feel Physically And Emotionally Safe While Living At Home? Yes Information not available 06/27/2021 Do You Feel Physically And Emotionally Safe In Your Neighborhood Or Other Public Places? Yes Information not available 06/27/2021 What Was The Date Of Your Most Recent Tobacco Screening? 09/01/2023 Information not available 09/01/2023 How Many Children Do You Have? 2 Information not available 09/09/2019 Performs Monthly Self-breast Exam? No Information no t available 09/10/2017 Do You Use Protection During Sex? Usually Information not available 09/10/2017 What Is Your Relationship Status? Information not available 06/27/2021 Do You Use Your Seat Belt Or Car Seat Routinely? Yes Information not available 10/22/2022 Seat Belts Used Routinely Yes Information not available 09/10/2017 Do You Have Smoke And Carbon Monoxide Detectors In Your Home? Yes Information not available 03/12/2021 Are You Passively Exposed To Smoke? No sdevriesma Information no t available 12/10/2019 How Much Tobacco Do You Smoke? No Information not available 01/03/2015 General Stress Level Low Information not available 09/24/2019 Do You Use Sunscreen Routinely? Yes Information not available 09/10/2017 Has Tobacco Cessation Counseling Been Provided? Yes Information not available 03/12/2021 On What Date Was Tobacco Cessation Counseling Provided? 04/29/2022 Information not available 04/29/2022 How Many Years Have You Smoked Tobacco? 0 Information not available 01/11/2020 Sex: Female Functional Status Question Answer Note LastModified by Organizat ion Details LastModified Time Do you use any illicit or recreational drugs? No Information not available 06/27/2021 Do you or have you ever used any other forms of tobacco or nicotine? No Information not available 10/22/2022 What is your level of alcohol consumption? None Information not available 09/10/2017 Do you or have you ever used smokeless tobacco? Never used smokeless tobacco Information not available 09/09/2019 Are you currently employed? Yes Information not available 06/27/2021 Are you able to care for yourself? Yes Information not available 09/09/2019 What is your occupation? [employer] Information not available 06/27/2021 Do you or have you ever used e-cigarettes or vape? Never used electronic cigarettes Information not available 09/09/2019 What is your exercise level? Occasional Information not available 09/10/2017 Mental Status None recorded. Family History Relationship Description Onset Age of this Age Resolved Age Notes LastModified by Organization Details LastModified Time Mother Alive Not availab le 01/03/2015 12:18:46 Father Alive Not availab le 01/03/2015 12:18:46 Brother Asthma Not availa ble 01/03/2015 12:18:46 Maternal Grandmother Malignant neoplasm of lung [email or web address] Not available 2017 10:08:55 Medical History Condition Response Coronary Artery Disease N Other N Atrial Fibrillation N High Blood Pressure N Breast Cancer N Lung Disease N Depression N COPD N Blood Clots N Breast Problem N Anesthesia Complications N Headaches/Migraines Y Anxiety Disorder N Muscle, Joint, or Bone Problems N Infertility N Polyps N Acid Reflux (GERD) N Cancer N Stroke N Endometriosis N High Cholesterol N Liver Disease N Headaches Y Thyroid Problems N Kidney or Bladder Problems N GI Problems N Acne N Eating Disorder N Skin Problems N Anemia N Heart Attack (OR) N Diabetes N Ovarian Cancer N Blood Transfusions N Seizures/Epilepsy N Abuse/Domestic Violence N Asthma N Allergies N Hepatitis N Heart Disease N Pre-Eclampsia N Heart Failure N Osteoporosis N Gynecological History Statement/Question Response Date of Last Mammogram Flow Light Date of LMP 07/15/2021 On BCP's at Conception? N HPV Vaccine N Duration of Flow (days) 5 Age at Menarche 12 Current Control Method BCPs Age at First Child 21 Frequency of Cycle (Q days) 31 Sexually Active? Y Menses Monthly Y Date of Last Pap Smear Sexual Problems? N LMP Approximate Desired Control Method BCPs Obstetrics History GPAL:G 2 P 2 0 0 2 Type Value Multiple Births 0 Full Term 2 Induced 0 Spontaneous 0 Premature 0 Living 2 Ectopics 0 Total 2 Immunizations Vaccine Type Date Status Note Provider Nam e and Address Organization Details Recorded Time COVID-19 vaccine, vector-nr, rS-ChAdOx1, PF, 0.5 mL 1 completed Not Available [facility] 03/31/[facility]23 23:38:52 Hib, unspecified formulation 3 completed ANGEL [place], [place] - [facility] 09/24/2023 08:50:39 Hib, unspecified formulation 3 completed Judi M[place] [facility] 09/24/2023 08:50:39 Hib, unspecified formulation 5 [place] [facility] 09/24/2023 08:50:39 Hib, unspecified formulation 7 [place] [facility] 09/24/2023 08:50:39 IPV 2 [place] [facility] 09/24/2023 08:50:39 MMR 6 [place] [facility] 09/24/2023 08:50:39 MMR 8 ruth M[place] [facility] 09/24/2023 08:50:39 MMR 3 completed Judi [place] [facility] 09/24/2023 08:50:39 meningococcal MPSV4 6 completed Judi [place] [facility] 09/24/2023 08:50:39 COVID-19 vaccine, vector-nr, rS-Ad26, PF, 0.5 mL 1 completed Judi [place] [facility] 09/24/2023 08:50:39 Tdap 2 completed Judi [place] [facility] 09/24/2023 08:50:39 varicella 4 completed Judi [place] [facility] 09/24/2023 08:50:39 DTP 3 completed Judi [place] [facility] 09/24/2023 08:50:39 DTP 3 completed Judi [place] [facility] 09/24/2023 08:50:39 DTP 5 completed Judi [place] [facility] 09/24/2023 08:50:39 DTP 7 completed Judi [place] [facility] 09/24/2023 08:50:39 DTP 3 completed Judi [place] [facility] 09/24/2023 08:50:39 OPV, trivalent 3 completed Judi [place] [facility] 09/24/2023 08:50:40 OPV, trivalent 6 completed [place] [facility] 09/24/2023 08:50:40 OPV, trivalent 3 completed Jud[place] [facility] 09/24/2023 08:50:40 OPV, trivalent 5 completed Judi [place] [facility] 09/24/2023 08:50:40 Hep B, adolescent or pediatric 2 completed Judi Manc[place], [place] [facility] 09/24/2023 08:50:40 Hep B, adolescent or pediatric 7 completed Judi [place]anc[place] [facility] 09/24/2023 08:50:40 Hep B, adolescent or pediatric 1 completed Judi [place] [facility] 09/24/2023 08:50:40 Hep B, adolescent or pediatric 7 completed [place]EL [place] [facility] 09/24/2023 08:50:40 Hep A, ped/adol, 2 dose 6 completed Judi Manc[place] [facility] 09/24/2023 08:50:40 [facility] 9 completed [facility] 02:42:03 Past Encounters Encounter ID Performer Location Encounter Start Date Encounter Closed Date Diagnosis/Indication Diagnosis SNOMED-CT Code Diagnosis ICD10 Code Diagnosis Note [id number] [facility] [address] [address] 01/03/2015 11:44:42 01/09/2015 12:48:28 Restless legs 32905904 G25.81 Patient requesting a monthly Hardship letter which she had been getting from her previous provider Patient advised this office unable to provide such service Patient provided with address for other [facility] office Patient refuses influenza vaccine at this time [id number] Compa Martinez MD Cesar [facility] ([place]) [address] [place] [address] 09/10/2017 09:26:55 10/06/2017 15:24:36 Contraception care management [id number] Z30.9 -implant removed without difficulty , see procedure note-advis ed on return of fertility, likely within 1-2mo given age (6yr) of device and presence of regular menses-rec ommended to start PNV now, script sent electronic ally to preferred pharmacy-r eturn in 1mo for annual 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 & Pap [id number] Compa Martinez MD [facility] ([place]) [address] [address] 8 12/15/2017 15:05:14 01/05/2018 15:13:37 Routine care 729569337 Z34.90 -unable to assess well-being due to early GA-routine IOB ordered-pl an for 1st trimester u/s referral at next visit-post plans: TBD-SAB precaution s reviewed Screening for malignant neoplasm of cervix 754738793 Z12.4 -patient unable to recall date of last Pap-routin e screening completed today Nausea and vomiting 1693 1999 R11.2 -toleratin g some PO at this time-urine dipstick w/ large ketones & sp grav 1.025-scri pts for antiemetic s sent electronic ally to pharmacy of choice-ins tructed to call office of seek emergency medical attention if unable to tolerate any PO for >24hrs Mass of right breast [phone] 0775816 N63.10 -1cm smooth, round, mobile lesion noted at 5 o'clock of right breast, approx 6cm from nipple-lik jose benign breast cyst, will monitor for resolution with CBE at next visit [id number] MD [facility] ([place]) [address] [place] [address] 8 01/05/2018 10:40:42 01/06/2018 10:55:54 Routine care 477714267 Z34.90 -FWB: unable to assess well-being due to early GA-Routine care: dating/via bility ultrasound ordered; patient undecided on aneuploidy screening, will continue to discuss-Po stpartum plans: TBD -SAB precaution s reviewed Acute urin ranjit tract infection 868736183 N39.0 -urine dipstick concerning for infection- formal UCx sent-scrip t for nitrofuran toin issued [id number] MD [facility] ([place]) [address] [id number] 01/30/2018 10:36:58 02/05/2018 12:35:11 Constipation 12487083 K59.00 Routine an tenatal care 625407669 Z34.90 -FWB: well-being reassuring per Doppler -Routine care: no routine labs or imaging today; desires aneuploidy screening, will complete AFP Tetra at next visit (16-19wks) -Postpartu m plans: TBMehul MORENO precaution s reviewed-R TO 4wks [id number] Compa Martinez MD [facility] ([place]) [address] [place] [address] 8 02/27/2018 10:46:12 03/03/2018 10:03:54 Routine care 342052102 Z34.90 -FWB: well-being reassuring per Doppler -Routine care: AFP Tetra completed, referral for anatomy scan issued; Udip nitrite(+) , however WBC(-), patient asymptomat ic, will send formal UCx & treat as needed-PNL : O+, Ab(-), RI-Postpar arvin plans: TBMehul -BART acosta s reviewed-R TO 4wks [id number] Compa Martinez MD [facility] ([place]) [address] [place] [address] 8 04/06/2018 11:03:17 04/07/2018 09:20:41 Routine care 085209357 Z34.90 -FWB: well-being reassuring per Doppler and fundal height -Routine care: reviewed results of anatomy scan, incomplete anatomy and low-lying placenta; follow-up already scheduled- PNL: O+, Ab(-), RI-Postpar arvin plans: TBD-RTO 4wks [id number] Compa Martinez MD [facility] ([place]) [address] [place] [address] 8 05/19/2018 15:17:16 05/20/2018 08:36:43 Routine care 474042741 Z34.90 -FWB: well-being reassuring per Doppler and fundal height -Routine care: reviewed results of follow-up anatomy scan; 3T labs today; unable to administer Tdap due to no supply in office-PNL : O+, Ab(-), RI-Postpar arvin plans: breastfeed , undecided contracept ion-RTO 2wks [id number] [facility] ([place]) [address] [place] [address] 8 06/17/2018 16:19:54 06/18/2018 12:13:34 Routine care 751729507 Z34.90 - well-being : reassuring per Doppler and fundal height -Routine care: reviewed results of 3T labs as completed at last visit; Tdap given due to lack of supply at last visit-PNL: O+, Ab(-), RI-Postpar arvin plans: breastfeed ing, undecided contracept ion-RTO 2wks [id number] Compa Martinez MD [facility] ([place]) [address] [place] [address] 8 07/01/2018 10:08:17 07/01/2018 15:07:16 Routine care 539635338 Z34.90 - well-being : reassuring per Doppler and fundal height -Routine care: no routine labs or imaging today; plan for GBS at next visit-PNL: O+, Ab(-), RI-Postpar arvin plans: breastfeed ing, undecided contracept ion-RTO 2wks [id number] Compa Martinez MD [facility] ([place]) [address] [place] [address] 8 07/15/2018 10:30:51 07/16/2018 08:44:29 Routine care 701283381 Z34.90 - well-being : reassuring per Doppler and fundal height -Routine care: GBS completed- PNL: O+, Ab(-), RI-Postpar arvin plans: breastfeed ing, undecided contracept ion-RTO 1wk Anemia of 2734 2003 O99.019 -CBC today to assess [id number] MD Herman Steven [facility] ([place]) [address] [place] [address] 8 07/22/2018 10:30:05 07/23/2018 09:05:43 Routine care [id number] Z34.90 - well-being : reassuring per Doppler and fundal height -Routine care: GBS completed last visit, however no results found; repeated today-PNL: O+, Ab(-), RI-Postpar arvin plans: breastfeed ing, undecided contracept ion-RTO 1wk [id number] MD Herman Steven [facility] ([place]) [address] [place] [address] 07/29/2018 10:34:06 07/30/2018 10:58:22 Routine care 513684219 Z34.90 - well-being : reassuring per Doppler and fundal height -Routine care: no routine labs or imaging today-PNL: O+, Ab(-), RI, GBS(-)-Pos tpartum plans: breastfeed ing, undecided contracept ion-Discus sed expectant management until 41wks vs elective IOL 39-40wks; at this time desires to await spontaneou s labor-RTO 1wk [id number] MD Herman Steven [facility] ([place]) [address] [place] [address] 08/04/2018 14:45:09 08/05/2018 11:17:50 Routine care [id number] Z34.90 - well-being : reassuring per Doppler and fundal height -Routine care: no routine labs or imaging today-PNL: O+, Ab(-), RI, GBS(-)-Pos tpartum plans: breastfeed ing, undecided contracept ion-RTO 1wk [id number] Compa Martinez MD [facility] ([place]) [address] [place] [address] 08/28/2018 10:41:32 09/02/2018 12:51:35 care 702599137 Z39.2 -recoverin g as expected-e xclusively breastfeed ing-desire s Nexplanon for contracept ion, placed today-EPDS 03/11-RTO 1yr for annual exam Contraception care 90587 5005 Z30.40 [id number] CARISSA DEL VALLE [facility] [address] [place] [address] 09/09/2019 09:30:49 09/10/2019 08:40:25 Obesity 298190658 E66.9 patient with BMI 34.6. drinks 2 cans soda everyday, eats mostly fast food and insufficie nt veggies and fruits. - lipid panel- A1C- asvised fast food once per week- cut down or stop soda- increase water intake- discussed portion sizes Migraine with aura 60463 06 G43.109 patient has migraines a few times a year but recently has been getting them 3x/week. she can feel migraine coming on when she starts having light sensitivit y. migraines last a few hours and affects mostly left side of head but has been all over head. She is breast feeding so currently taking tylenol which helps but she tried to avoid medication s. She drinks two cans of soda every day and mostly fast food.fried foods. not many veggies. - labs to r/o DM, thyroid, anemia, electrolyt e imbalance- get eyes checked- headache diary- f/u one month [id number] CARISSA DEL VALLE [facility] [address] [place] [address] 09/24/2019 12:05:37 09/27/2019 07:09:16 Dysuria 94856384 R30.9 one day if increased frequency. denies fever, chills, blood in urine, dysuria. UA negative. f/u If sx continue. Low back pain 542418619 M54.5 Patient presents with one day of right lower back pain without radiation. on exam she was tender over SI joint. Patient has been picking up her kids at home. - advised to lose weight- tylenol prn as she is still breast feeding- heat/ice- stretches- f/u prn- went over warning signs of when to seek ED [id number] CARISSA DEL VALLE [facility] [address] [place] [address] 12/10/2019 10:30:01 12/13/2019 11:10:14 Migraine with aura 8909678 G43.109 She continues having migraines. Has not checked eyes. Has not made diet changes. Did not make headache journal. She is breast feeding.sl eeping okay, denies depression . continue taking tylenol as it does help with pain.- [facility] thyroid- get eyes checked- headache diary- f/u one month Serum thyr oid stimulating hormone level outside reference range 327929761 R79.89 [facility] thyroid [id number] CARISSA DEL VALLE [facility] [address] [place] [address] 06/05/2020 08:05:15 06/06/2020 07:28:03 Migraine with aura 9651136 G43.109 She continues having migraines. did get new glasses but did not improve headaches. Has not made diet changes. Did not make headache journal. She is breast feeding.sl eeping okay, denies depression . continue taking tylenol as it does help with pain. [facility] - f/u one month Bilateral calf pain [id number] 3834970 M79.661 bilateral calf pain worse with walking and improves with rest. feels like a muscle is being pulled. Patient went to [place] ER for leg pain as she thought it could be a/w sherrell&rachel hnson vaccine. Normal work up. denies swelling, erythema, falls, weakness. - increase walking to build up to 30-45 min 5x week - stretch calf muscles before and after walking - f/u if worsening or not improving - may take tylenol or nsaid for pain - ER if develops swelling in one leg, pain and or erythema [id number] CARISSA DEL VALLE [facility] [address] [place] [address] 10/27/2020 08:13:42 10/30/2020 16:26:10 Migraine with aura 8612785 G43.109 She continues having migraines. did get new glasses but did not improve headaches. Has not made diet changes. will try preventati ve medication as well as abortive. f/u one month - [facility] thyroid - headache diary - f/u one month [id number] CARISSA DEL VALLE [facility] [address] [place] [address] 03/12/2021 15:37:01 03/13/2021 09:19:38 Essential hypertension 90872251 I10 addin hcz to lisinopril . advised weight loss and DASH diet. ER if chest pain sob, worst SU of her life. Advised to check BP regularly with a goal of <140/90, if BP consistent ly >140/90, advised to contact clinic Discussed DASH diet Advised weight loss and diet is best way to control BP Advised 30 minutes of exercise minimum daily Advised tobacco, alcohol, caffeine all increase BP Advised goal for BP is <140/90 Obesity 219799567 E66.9 patient with BMI 38.6. drinks 1 cans soda everyday, eats mostly fast food and insufficie nt veggies and fruits. Agrees to see supervisor toy assembly. - lipid panel- A1C- asvised fast food once per week- cut down or stop soda- increase water intake- discussed portion sizes Migraine 24955331 G43.90 9 improving. [id number] CARISSA DEL VALLE [facility] [address] [place] [address] 05/23/2021 16:30:26 05/25/2021 03:46:54 Adult health examination 109298622 Z00.00 [id number] CARISSA DEL VALLE [facility] [address] [place] [address] 06/27/2021 15:31:33 07/04/2021 09:17:52 Migraine 85456836 G43.909 - start preventati ve- f/u SU journal- control BP- head imaging and neuro is next step. [id number] CARISSA DEL VALLE [facility] [address] [place] [address] 08/14/2021 10:11:07 08/15/2021 21:11:39 Migraine 80339603 G43.909 - continue preventati ve- f/u SU journal- control BP- triptan prn. aware of rare but serious serotonin syndrome Obesity 438802348 E66.9 patient with BMI 38.6. drinks 1 cans soda everyday, eats mostly fast food and insufficie nt veggies and fruits. Agrees to see supervisor toy assembly. - lipid panel- A1C- asvised fast food once per week- cut down or stop soda- increase water intake- discussed portion sizes [id number] CARISSA DEL VALLE [facility] [address] [place] [address] 04/04/2022 16:28:43 04/04/2022 16:47:13 [id number] CARISSA DEL VALLE [facility] [address] [place] [address] 04/29/2022 09:56:18 04/29/2022 10:31:43 Dizziness 778591857 R42 dizziness when looking left or standing up. ruby maneuver performed today. helped slightly.R /O other causes of dizziness. - advised increase hydration- take not of what triggers dizziness- f/u 2 weeks Acute urin ranjit tract infection 385345878 N39.0 no sx today but + UA [id number] CARISSA DEL VALLE [facility] [address] [place] [address] 09/09/2022 15:15:50 09/10/2022 11:00:48 Acute urinary tract infection 246105408 N39.0 no sx today but + UA [id number] CARISSA DEL VALLE [facility] [address] [place] [address] 09/18/2022 15:34:40 10/08/2022 03:48:15 Urinary symptoms 655542904 R39.9 [id number] Rosmery Wright MD [facility] ([place]) [address] [place] [address] 10/22/2022 14:10:17 10/23/2022 12:08:15 Cyst of ovary 81768904 N83.209 -Hx of ovarian cysts. Went to ER most recently on 10/03 for L sided pelvic pain. CT showed adnexal cyst. Pt was treated for UTI and instructed to follow up regarding cyst. Pain now resolve -07/31/22: ER CTAP shows 4 cm L adnexal cyst. TVUS shows 2.7 cm L adnexal cyst.-10/03: ER CTAP shows 2.6 cm L adnexal cyst. PE: no abdominal or pelvic ttp. -Provided pt reassuranc e. Will order TVUS to reassess. Contracept ion care management 576965578 Z30.9 -Nexplanon placed 08/28/2018. Desires removal.-D iscussed different control options with patient such as OCPs, patch, ring, Depo Provera shot, Nexplanon, and IUDs including SE and RF.-Given HTN, will avoid estrogen. Pt desires POPs.-Will schedule for removal and start POP after removal. Morbid obesity 285283592 E66.01 BMI 42.9 [id number] Rosmery Wright MD [facility] ([place]) [address] [place] [address] 10/31/2022 14:23:35 11/05/2022 14:29:53 Removal of subcutaneous contraceptive 678855234 Z30.46 -Removed without complicati on. Denies paresthesi as.-Discus sed proper wound care. Keep steri-stri ps and band-aid in place x 3-5 days. Keep pressure bandage in place x 24 hours.-NSA IDs prn for pain. Call if develop severe pain, fever, or chills. Contracept ion care management 131125651 Z30.9 -previousl y discussed contracept xin options after Nexplanon removal. Given HTN, will avoid estrogen. Pt desires POPs. Reviewed RFs and SEs including changes in bleeding pattern. Recommend use of backup contracept ion x 7 days after starting POPs.-UPT (-)-Rx sent Morbid obesity 718319882 E66.01 BMI 42.6 [id number] CARISSA DEL VALLE [facility] [address] [place] [address] 02/25/2023 14:51:53 02/25/2023 15:42:13 Fatigue 02810914 R53.83 Migraine with aura 44843 06 G43.109 She continues having migraines. did get new glasses but did not improve headaches. Has not made diet changes. will try preventati ve medication as well as abortive. f/u one month - [facility] thyroid - headache diary - f/u one month Obesity 823654513 E66.9 patient with BMI 41.8. drinks 1 cans soda everyday, eats mostly fast food and insufficie nt veggies and fruits. - lipid panel- A1C- asvised fast food once per week- cut down or stop soda- increase water intake- discussed portion sizes Essential hypertension 09908761 I10 controlled Advised to check BP regularly with a goal of <140/90, if BP consistent ly >140/90, advised to contact clinicDisc ussed DASH dietAdvise d weight loss and diet is best way to control BPAdvised 30 minutes of exercise minimum dailyAdvis ed tobacco, alcohol, caffeine all increase BPAdvised goal for BP is <140/90 Health Concerns Section Related Observation LastModified by Organization Detai ls LastModified Time None Recorded Concern Status LastModified by Organization Details LastModified Time None Recorded Advance Directives Directive None Recorded Payers Insurance Date Sequence Insurance Name Policy Number Policy Aguilar Covered Member ID Aguilar Member ID Guarantor Name 06/23/2018 1 [place] [facility] Yesi Garcia [id number] Yesi Garcia 10/24/2023 1 [facility] (MEDICAID HMO) [id number] Yesi Garcia [id number] Yesi Garcia 07/29/2018 1 [facility] (MEDICAID HMO) [id number] Yesi Garcia [id number] Yesi Garcia 07/29/2018 1 [facility] - DOS PRIOR TO 2020 (MEDICAID REPLACEMENT - HMO) Yesi Garcia [id number] Yesi Garcia 07/15/2018 1 MEDICAID - MOVED-[id number] - PENDING [id number] Yesi Garcia 09/08/2019 1 [place] [facility] Yesi Garcia [id number] Yesi Garcia 09/10/2017 1 [facility] (MEDICAID HMO) [id number] Yesi Garcia [id number] Yesi Garcia Notes Date Note Type Note Provider Name and Address Organization Details Recorded Time 10/22/2022 text/html 32 yo pr esents for ovarian cysts and contraception care. Pt went to ER 09/2022 for L sided pelvic pain radiating to back. CT showed L adnexal cyst. Pain now resolved. Pt has Nexplanon for contraception, placed 2019. States menses are light, spotty and mostly monthly. Interested in alternative contraception options. CARISSA LEWIS Attn: Accounting,[address], [place], [address], [facility] - [facility] 10/22/2022 16:09:38 10/31/2022 text/html 32 yo pr esents for Nexplanon removal. Denies complaints, desires to start POPs. CARISSA LEWIS Attn: Accounting,[address], [place], [address], [facility] - [facility] 10/31/2022 17:33:21 02/25/2023 text/html HeadacheReported bypatient.Location:[facility] Quality:not the worst headache ever;not similar to previous headaches;aching Severity:moderate; pain level 8/10 Duration:lasts hours Onset/Timing:better Context:not related to trauma Associated Symptoms:tearing/water y eyes; no confusion; no slurred speech; no double vision; normal feeling/sensation; no motor paralysis; no dizziness; no sleep disturbances; no nosebleeds; no hoarseness; no sore throat; no hearing loss;vomiting;photopho dov;with preceeding aura;tingling patient presents for worsening headaches in last month has had 2 headaches per week. Tylenol can improve it or dull it some. last full blown migraine was january 06 and lasted 2-3 days. sumatriptan was taken twice and eased. In last 3 months has missed 2x per month as headaches last about 2 days. before migraines she typically feels very tired pressure on head before migraine. during migraine lights, nausea/vomiting and sounds make migraine worse. triggers are lack of sleep/stress.had vision exam last year and got glasses but made no difference. recently feels shoulder are aching and arms feel heavy. She feels like shes full all the time. CARISSA DEL VALLE Attn: Accounting,[address], [place], [address], [facility] - [facility] 02/25/2023 15:43:51 OBGyn Episode Ob Episode Information Episode Created Date Number of Fetuses Patient Bloodtype Patient rh Status Prepregnancy Weight lbs Domestic Partner Domestic Partner Phone Father Name Production Underwriter Status 12/16/19 18 1 O Positive CLOSED Fetus Data First Name Last Name Admitted to NICU Weight (g) Sex Living Outcome Pediatric Complications Fetus ID Race Codes Race Delivery Type false 3118.44 5 F [id number] [id number] White Vaginal Problems Problem Notes Problem Name Start Date End Date Resolution Snomed Code Not e Anemia of [id number] Low lying placenta 049600710 n oted on 03/24 (20w0d) u/s; follow-up scheduled for 4wks; resolved as of 04/21 (24w0d) scan Nausea and vomiting 88523240 scripts for doxylamine, B6, ondansetron & promethazine issued 12/15/17 Pao Calculation Initial Pao Date Initial Exam Date Initial Exam Provider Initial Ultrasound Date Last Menstrual Period Date Ultra Sound Weeks Gestation 08/11/2018 12/15/2017 [email or web address] 01/08/2018 11/04/2017 10 Eighteen To Twenty Week Pao Update Ultra Sound Date Fundal Height At Umbil Quickening Date Ultra Sound Latest Weeks Gestation Final Pao Confirmed By Final Pao Confirmed Date Final Pao Date Ultra Sound Latest Days Gestation 0 [email or web address] 01/09/2018 08/12/19 19 0 Pre- Flowsheet Flowsheet Date 12/15/2017 Landin Score Blood Edema Fundus Height Fundus Units Glucose Ketones Leukocytes Nitrite Labor Signs Protein Cervic Dilation Cervic Effacement Cervic Station trace none none large neg Type Weight in lbs Pre/Post Dialysis Refused Weight 179.343842649167 BP Diastolic BP Location Tested BP Systolic BP Type 88 126 sitting Fetus Heart Rate Present Fetus Movement Comments 27yo at 5w6d by LMP 11/04/17 (PAO 08/11/18) here for initial OB visit. Was having regular menses while using Nexplanon, continued with monthly periods after removal. Sure LMP 11/04/17. Reports nausea for the past 2wks, however has been worse over the past 1wk. Currently vomiting approx 10x/d, though able to keep down some PO. Also endorses 1wk of breast tenderness. Intermittent mild midline pelvic cramping with radiation to low back, however denies vaginal bleeding. Unable to assess well-being due to early GA. Pap & IOB labs completed today. Antiemetic scripts issued. SAB precautions reviewed. Plan for 1st trimester u/s at next visit. RTO 4wks. Flowsheet Date 01/05/2018 Landin Score Blood Edema Fundus Height Fundus Units Glucose Ketones Leukocytes Nitrite Labor Signs Protein Cervic Dilation Cervic Effacement Cervic Station trace none small Other (see comments ) 1+ Type Weight in lbs Pre/Post Dialysis Refused Weight 175.377346210699 BP Diastolic BP Location Tested BP Systolic BP Type 80 122 sitting Fetus Heart Rate Present Fetus Movement Comments 27yo at 8w6d by LMP 11/04/17 (PAO 08/11/18) here for [facility] visit. Reports continued N/V however improved w/ ondansetron & doxylamine. Now tolerating ample solid PO in addition to liquids. Occasional light cramping but no VB. Dating/viability u/s ordered. Patient undecided on aneuploidy screening, will continue to discuss. Udip concerning for infection (+WBC, +nitrite, +blood, +protein), UCx sent & script for nitrofurantoin issued. RTO 4wks. SAB precautions reviewed. Flowsheet Date 01/30/2018 Landin Score Blood Edema Fundus Height Fundus Units Glucose Ketones Leukocytes Nitrite Labor Signs Protein Cervic Dilation Cervic Effacement Cervic Station trace none none small Other (see comments ) neg Type Weight in lbs Pre/Post Dialysis Refused Weight 173.368417647594 BP Diastolic BP Location Tested BP Systolic BP Type 80 120 sitting Fetus Heart Rate Present A 160 Present Fetus Movement Comments 27yo at 12w3d by L= 10 (PAO 08/11/18) here for [facility] visit. Continues to improve with regards to N/V, now mostly just in AM. Does report occasional menstrual- like cramping and low back pain. Denies VB, abnormal vaginal discharge, urinary frequency/urgency or dysuria. Having constipation w/ BM every 2-3d, usually daily pattern. well-being reassuring per Doppler. No routine labs or imaging today. Desires aneuploidy screening, will complete AFP Tetra at next visit (16-19wks). Urine culture sent on account of pain & blood on dipstick. Scripts for docusate and Miralax issued on account of constipation. SAB precautions reviewed. RTO 4wks. Flowsheet Date 02/27/2018 Landin Score Blood Edema Fundus Height Fundus Units Glucose Ketones Leukocytes Nitrite Labor Signs Protein Cervic Dilation Cervic Effacement Cervic Station trace none none trace none trace Type Weight in lbs Pre/Post Dialysis Refused Weight 171.036180351026 BP Diastolic BP Location Tested BP Systolic BP Type 82 120 sitting Fetus Heart Rate Present A 150 Present Fetus Movement A Yes Comments 27yo at 16w3d by L= 10 (PAO 08/11/18) here for [facility] visit. Continues to improve with regards to N/V. Denies uterine cramping, VB, or dysuria. +FM. well- being reassuring per Doppler.AFP Tetra completed & referral for anatomy scan issued. Udip nitrite(+), however WBC(-) and patient asymptomatic. Will send formal UCx, follow-up/treat as needed. RTO 4wks. Flowsheet Date 04/06/2018 Landin Score Blood Edema Fundus Height Fundus Units Glucose Ketones Leukocytes Nitrite Labor Signs Protein Cervic Dilation Cervic Effacement Cervic Station neg none 22 cm none negative none neg Type Weight in lbs Pre/Post Dialysis Refused Weight 171.339239857325 BP Diastolic BP Location Tested BP Systolic BP Type 72 112 sitting Fetus Heart Rate Present A 155 Present Fetus Movement A Yes Comments 27yo at 21w6d by L= 10 (PAO 08/11/18) here for [facility] visit. No complaints today. Denies ctx, VB, LOF. well-being reassuring per Doppler and fundal height. No routine labs or imaging today. Feviewed results of anatomy scan, incomplete anatomy and low-lying placenta; follow-up already scheduled. RTO 4wks. Flowsheet Date 05/19/2018 Landin Score Blood Edema Fundus Height Fundus Units Glucose Ketones Leukocytes Nitrite Labor Signs Protein Cervic Dilation Cervic Effacement Cervic Station neg 30 cm none negative none trace Type Weight in lbs Pre/Post Dialysis Refused Weight 174.246005974400 BP Diastolic BP Location Tested BP Systolic BP Type 76 116 sitting Fetus Heart Rate Present A 145 Present Fetus Movement A Yes Comments 27yo at 28w0d by L= 10 (PAO 08/11/18) who presents for [facility] visit. No complaints today. Denies ctx, VB, LOF. well-being reassuring per Doppler and fundal height. Reviewed results of follow-up anatomy scan (EFW 47%, placenta no longer low-lying, normal completion anatomy). 3T labs today. Unable to administer Tdap due to no supply in office, will plan for next visit. RTO 2wks. Flowsheet Date 06/17/2018 Landin Score Blood Edema Fundus Height Fundus Units Glucose Ketones Leukocytes Nitrite Labor Signs Protein Cervic Dilation Cervic Effacement Cervic Station neg 33 cm none negative none neg Type Weight in lbs Pre/Post Dialysis Refused Weight 175.609484529911 BP Diastolic BP Location Tested BP Systolic BP Type 72 114 sitting Fetus Heart Rate Present A 145 Present Fetus Movement A Yes Comments 27yo at 32w1d by L= 10 (PAO 08/11/18) here for [facility] visit. No complaints today. Denies ctx, VB, LOF. well-being reassuring per Doppler and fundal height. Reviewed results of 3T labs as completed at last visit. Tdap given due to lack of supply at last visit. RTO 2wks. Flowsheet Date 07/01/2018 Landin Score Blood Edema Fundus Height Fundus Units Glucose Ketones Leukocytes Nitrite Labor Signs Protein Cervic Dilation Cervic Effacement Cervic Station trace 35 cm none negative none neg Type Weight in lbs Pre/Post Dialysis Refused Weight 175.839295095860 BP Diastolic BP Location Tested BP Systolic BP Type 68 114 sitting Fetus Heart Rate Present A 135 Present Fetus Movement A Yes Comments No complaints today. Denies ctx, VB, LOF. well-being reassuring per Doppler and fundal height.No routine labs or imaging today, plan for GBS at next visit. RTO 2wks. Flowsheet Date 07/15/2018 Landin Score Blood Edema Fundus Height Fundus Units Glucose Ketones Leukocytes Nitrite Labor Signs Protein Cervic Dilation Cervic Effacement Cervic Station neg 36 cm none negative Other (see comments ) neg 1cm 0% -3 Type Weight in lbs Pre/Post Dialysis Refused Weight 174.66077969640 BP Diastolic BP Location Tested BP Systolic BP Type 70 110 sitting Fetus Heart Rate Present A 140 Present Fetus Movement A Yes Comments Reports occasional pelvic pr essure. Denies ctx, VB, LOF. SVE not concerning for PTL. well-being reassuring per Doppler and fundal height. GBS completed. CBC drawn to re-assess anemia. RTO 1wk. PTL precautions reviewed. Flowsheet Date 07/22/2018 Landin Score Blood Edema Fundus Height Fundus Units Glucose Ketones Leukocytes Nitrite Labor Signs Protein Cervic Dilation Cervic Effacement Cervic Station neg 37 cm none negative Other (see comments ) 1+ Type Weight in lbs Pre/Post Dialysis Refused Weight 174.403251063774 BP Diastolic BP Location Tested BP Systolic BP Type 62 100 sitting Fetus Heart Rate Present A 135 Present Fetus Movement A Yes Comments Continues to have occasional pelvic pain & pressure, mostly on L side. Denies ctx, VB, LOF. well-being reassuring per Doppler and fundal height. GBS completed last visit however no results found. Repeated test today in lieu of tracking down missing results. RTO 1wk. Labor precautions reviewed. Flowsheet Date 07/29/2018 Landin Score Blood Edema Fundus Height Fundus Units Glucose Ketones Leukocytes Nitrite Labor Signs Protein Cervic Dilation Cervic Effacement Cervic Station neg 38 wks none negative none neg Type Weight in lbs Pre/Post Dialysis Refused With clothes 175.103029128 BP Diastolic BP Location Tested BP Systolic BP Type 84 126 sitting Fetus Heart Rate Present A 140 Present Fetus Movement A Yes Comments No complaints today. Denies ctx, VB, LOF. +FM. well-being reassuring per Doppler and fundal height. No routine labs or imaging today. Reviewed results of GBS(-) as completed at last visit. Counseled on contraception, remains undecided. Discussed expectant management until 41wks vs elective IOL 39-40wks; at this time desires to await spontaneous labor. RTO 1wk. Flowsheet Date 08/04/2018 Landin Score Blood Edema Fundus Height Fundus Units Glucose Ketones Leukocytes Nitrite Labor Signs Protein Cervic Dilation Cervic Effacement Cervic Station neg 38 cm none negative none neg 2cm 50% - 2 Type Weight in lbs Pre/Post Dialysis Refused Weight 176.075282782328 BP Diastolic BP Location Tested BP Systolic BP Type 78 120 sitting Fetus Heart Rate Present A 145 Present Fetus Movement A Yes Comments No complaints today. Denies ctx, VB, LOF. +FM. well-being: reassuring per Doppler and fundal height. No routine labs or imaging today. RTO 1wk. Will schedule late-term induction for 41wks at next visit if not delivered. Flowsheet Date 08/28/2018 Landin Score Blood Edema Fundus Height Fundus Units Glucose Ketones Leukocytes Nitrite Labor Signs Protein Cervic Dilation Cervic Effacement Cervic Station Type Weight in lbs Pre/Post Dialysis Refused With clothes 165.542031026127 BP Diastolic BP Location Tested BP Systolic BP Type 80 108 sitting Fetus Heart Rate Present Fetus Movement Comments Menstrual History Last Menstrual Date Menses Monthly On Bcp Conception Prior Menses Frequency Hcg Plus Date Menarche Onset Age 0911/04/2017 true false 28 11 Genetic Screening And Infection History Question Response Note Patient's Age Will Be 35 Years Or Older At Estim ated Date of Delivery false Thalassemia (Kiswahili, Syriac, Mediterranean, Or Background): MCV < 80 false Neural Tube Defect (Meningomyelocele, Spina Bifi da, Or Anencephaly) false Congenital Heart Defect false Down Syndrome false Grupo-Sachs (eg, Latter Day, Cajun, Nepali-Dewey) f alse Xavier Disease false Sickle Cell Disease Or Trait () false Hemophilia Or Other Blood Disorders false Muscular Dystrophy false Cystic Fibrosis false [place]'s Chorea false Mental Retardation/Autism false Other Inherited Genetic Or Chromosomal Disorder false Maternal Metabolic Disorder (eg, Type 1 Diabetes , PKU) false Patient Or Baby's Father Had A Child With Defects Not Listed Above false Recurrent Loss, Or A Stillbirth false Medications (including Suppl ements, Vitamins, Herbs, OTC Drugs), Illicit/Recreational Drugs, Alcohol false If Yes, Agent(s) And Strength/Dosage false Any Other Genetic History false Live With Someone With TB Or Exposed To TB false Patient Or Partner Has History Of Genital Herpes false Rash Or Viral Illness Since Last Menstrual Perio d false History Of STD, Gonorrhea, Chlamydia, HPV, Syphi lis false Other Infection History false History of HIV false History of Hepatitis false Prior GBS-infected child false Delivery Information Delivery Date Delivery Type Labor Anesthesia Weeks Gestation Incision Type Labor Labor Length Hrs Delivered By Post Complications Tubal Sterilization Discharge Date Comments 9 [facility] 39.2 false Ania Lloyd MD None false 08/07/2018 Discharge Information Feeding Method Contraceptive Method Maternal HG B and HCT Levels Breast Nexplanon 9.03/08.5 Ob Episode Information Episode Created Date Number of Fetuses Patient Bloodtype Patient rh Status Prepregnancy Weight lbs Domestic Partner Domestic Partner Phone Father Name Production Underwriter Status 09/11/19 18 1 CLOSED Fetus Data First Name Last Name Admitted to NICU Weight (g) Sex Living Outcome Pediatric Complications Fetus ID Race Codes Race Delivery Type 3373.36 [id number] M Full Term [id number] Standard Vaginal Delivery Pao Calculation Initial Pao Date Initial Exam Date Initial Exam Provider Initial Ultrasound Date Last Menstrual Period Date Ultra Sound Weeks Gestation 0 Eighteen To Twenty Week Pao Update Ultra Sound Date Fundal Height At Umbil Quickening Date Ultra Sound Latest Weeks Gestation Final Pao Confirmed By Final Pao Confirmed Date Final Pao Date Ultra Sound Latest Days Gestation 0 0 Menstrual History Last Menstrual Date Menses Monthly On Bcp Conception Prior Menses Frequency Hcg Plus Date Menarche Onset Age Delivery Information Delivery Date Delivery Type Labor Anesthesia Weeks Gestation Incision Type Labor Labor Length Hrs Delivered By Post Complications Tubal Sterilization Discharge Date Comments 3 [facility] 42 jorge Garcia s Discharge Information Feeding Method Contraceptive Method Maternal HG B and HCT Levels
--- OUTSIDE RECORDS SUMMARY | 2024-08-31 16:19 | XMS_ITS | Clinical Summary ---
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 This disclosure is being madepursuant to the Care Everywhere program and may not contain all information available regarding this patient. 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 Gender Identity Not on file Sexual Orientation Not on file Plan of Treatment Health Maintenance Due Date Last Done Comments HIV SCREENING 08/16/2006 HEPATITIS C SCREENING 08/12/2009 DTAP/TDAP/TD VACCINES (1 - Tdap) 08/16/2010 HEPATITIS B VACCINE (1 of 3 - 19+ 3-dose series) 08/16/2010 HPV VACCINE (1 - 3-dose SCDM series) 08/16/2018 COVID-19 VACCINE ( - 2023-2 5 season) 2023 DEPRESSION SCREENING 02/11/2024 INFLUENZA VACCINE (#1) 2024 ZOSTER VACCINE (1 of 2) 08/16/2041 HIB VACCINE Aged Out No longer eligi ble based on patient's age to complete this topic MENINGOCOCCAL (Group B) VACC INE SHARED DECISION-MAKING Aged Out No longer eligibl e based on patient's age to complete this topic MENINGOCOCCAL GROUPS A/C/Y/W VACCINE Aged Out No longer eligible b ased on patient's age to complete this topic PNEUMOCOCCAL VACCINE Aged Out No long er eligible based on patient's age to complete this topic Insurance
--- OUTSIDE RECORDS SUMMARY | 2024-08-31 16:19 | XMS_ITS | Clinical Summary ---
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 Gender Identity Not on file Sexual Orientation Not on file Plan of Treatment Health Maintenance Due Date Last Done Comments Hepatitis C Virus (HCV) Screening 1991 Pap Smear 08/16/2012 Cervical Cancer Screening (CCS) 08/16/2021 HPV/Cotest 08/16/2021 Influenza Immunization (#1) 2023 SARS-COV-2 Immunization ( season) 2023 Respiratory Syncytial Virus (RSV) Immunization (Adult) (1 - 1-dose 75+ series) 08/16/2066 Hepatitis B Immunization Completed 002, 10/09/2000, 12/02/1996, Additional history exists Meningococcal Immunization (ACWY) Aged Out 08/15/2005 No longer eligible based on patient's age to complete this topic DTaP/Tdap/Td Immunization Discontinued 2018, 05/21/2001, 12/07/1996, Additional history exists TdaP Immunization Completed 06/17/2018, 05/21/2001 Pneumococcal Immunization Combined Aged Out No longer eligible based on patient's age to complete this topic Rotavirus Immunization Aged Out No lo nger eligible based on patient's age to complete this topic Insurance [employer] on file
[2024-08-31 16:20] VITALS: BP 149/92; PULSE 102; RESP 16; TEMP 36.3; O2SAT 100
--- NOTE | 2024-08-31 18:48 | ED_ITS ---
HPI - General Adult General Chief complaint: Headache <Toshia Yanez PA-C - Last Filed: 08/31/24 22:31> Stated complaint: headache <Toshia Yanez PA-C - Last Filed: 08/31/24 22:31> Time Seen by Provider: 08/31/24 18:48 <Toshia Yanez PA-C - Last Filed: 08/31/24 22:31> Focused HPI: This is a 34-year-old female that presents to the emergency department for symptoms ongoing over the last week. Reports she had a positive test. This prompted her to stop her preventative migraine medication, amitriptyline. Since she has been having chills, some abdominal cramping, dizziness, mild headaches, nausea. LMP was 07/26/24. GENERAL: Well-appearing, well-nourished, and in no acute distress. HEAD: Normocephalic, atraumatic. CHEST: Clear to auscultation. ?No respiratory distress. HEART: Regular rate and rhythm.? NEURO: ?Alert and oriented x3. Patient screened in triage and initial orders placed.? ?Additional care and disposition to be based upon?diagnostic testing and treatment. <Toshia Yanez PA-C - Last Filed: 08/31/24 22:31> History of Present Illness HPI narrative: I agree with the above HPI <Brandon Vazquez MD - Last Filed: 08/31/24 22:09> Related Data Home medications: Home Medications ?Medication ?Instructions ?Recorded ?Confirmed ?Last Taken ?Type amitriptyline 25 mg tablet 25 mg PO DAILY 11/05/21 02/07/23 Unknown History lisinopril 10 1 tablet PO DAILY 11/05/21 02/07/23 Unknown History mg-hydrochlorothiazide 12.5 mg tablet sumatriptan succinate 50 mg tablet 50 mg PO DIRECTED 11/05/21 02/07/23 Unknown History norethindrone (contraceptive) 0.35 0.35 mg PO DAILY 02/07/23 02/07/23 Unknown History mg tablet <Toshia Yanez PA-C - Last Filed: 08/31/24 22:31> Allergies/adverse reactions: Allergies Allergy/AdvReac Type Severity Reaction Status Date / Time amoxicillin (From Amoxil) Allergy Unknown Rash Verified 12/29/23 12:29 prochlorperazine (From AdvReac Intermediate Muscle Verified 02/07/23 12:29 Compazine) Spasms <Toshia Yanez PA-C - Last Filed: 08/31/24 22:31> Review of Systems 2 Review of Systems: All systems reviewed & are unremarkable except as noted in HPI and below <Brandon Vazquez MD - Last Filed: 08/31/24 22:09> [facility] Past Medical History Medical History: Medical History HTN (hypertension) Migraine UTI (urinary tract infection), bacterial <Toshia Yanez PA-C - Last Filed: 08/31/24 22:31> Surgical History Surgical History: Surgical History No significant past surgical history <Toshia Yanez PA-C - Last Filed: 08/31/24 22:31> Family History Family History: Family History Other Asthma Lung cancer <Toshia Yanez PA-C - Last Filed: 08/31/24 22:31> Social History Social History: Social History Smoking status: Never smoker Second hand tobacco smoke exposure: No Alcohol intake: never Substance use type: does not use Occupation/Education: occupation Gender identity (if verbalized by the patient): Female <Toshia Yanez PA-C - Last Filed: 08/31/24 22:31> Exam 2 Narrative: APPEARANCE: Well appearing, no pain, no distress, well-nourished. HEAD: normocephalic, atraumatic. EYES: PERRLA/EOMI, conjunctivae clear. NOSE: Normal no drainage EARS:TMS clear with good light reflex. THROAT: Pharynx clear, no exudate. NECK: Supple. No adenopathy, no masses. RESPIRATORY: Airway patent, respirations nonlabored. Clear to auscultation bilaterally, no rales, rhonchi, wheezing. CARDIOVASCULAR: Regular rate and rhythm without murmurs rubs or gallops. ABDOMINAL: Soft, nontender, nondistended, normal bowel sounds MUSCULOSKELETAL: Moves all extremities. Strength/ROM intact, No edema, No calf tenderness. NEURO: Alert. Cranial nerves II through XII intact. Good gait. Good coordination SKIN: Warm, dry. Normal Color <Brandon Vazquez MD - Last Filed: 08/31/24 22:09> Course Vital Signs Vital signs: Vital Signs Temperature 97.4 F L 08/31/24 16:20 Pulse Rate 102 H 08/31/24 16:20 Respiratory Rate 16 08/31/24 16:20 Blood Pressure 149/92 H 08/31/24 16:20 Pulse Oximetry 100 08/31/24 16:20 Temperature 98.5 F 08/31/24 21:52 Pulse Rate 105 H 08/31/24 21:52 Respiratory Rate 16 08/31/24 21:52 Blood Pressure 122/70 08/31/24 21:52 Pulse Oximetry 99 08/31/24 21:52 Oxygen Delivery Room Air 08/31/24 20:36 <Toshia Yanez PA-C - Last Filed: 08/31/24 22:31> Vital Signs Temperature 97.4 F L 08/31/24 16:20 Pulse Rate 102 H 08/31/24 16:20 Respiratory Rate 16 08/31/24 16:20 Blood Pressure 149/92 H 08/31/24 16:20 Pulse Oximetry 100 08/31/24 16:20 Temperature 98.5 F 08/31/24 21:52 Pulse Rate 105 H 08/31/24 21:52 Respiratory Rate 16 08/31/24 21:52 Blood Pressure 122/70 08/31/24 21:52 Pulse Oximetry 99 08/31/24 21:52 Oxygen Delivery Room Air 08/31/24 20:36 <Brandon Vazquez MD - Last Filed: 08/31/24 22:09> Medical Decision Making MDM Narrative Medical decision making narrative: 34-year-old female presents emergency department for evaluation for flu- like symptoms. Patient's symptoms may be secondary to viral etiology versus amitriptyline withdrawal. Patient stop taking her medication on 08/20. This to be an extended time duration for her to have amitriptyline withdrawal. Patient has normal vital signs. Patient is afebrile but does have a leukocytosis of 12.4 hemoglobin of 12.1. No acute abnormalities on her CMP UA was negative for infection. Patient was negative for influenza RSV and for COVID. Patient was treated with IV Benadryl, IV fluids and IV Reglan. Patient did feel improved time of re-evaluation. Patient was provided p.o. Zofran for home encouraged to continue have follow-up with OB [facility]. All questions concerns were addressed patient was well-appearing at time of discharge. <Brandon Vazquez MD - Last Filed: 08/31/24 22:09> Differential Diagnosis Differential Diagnosis: Influenza, COVID, RSV, UTI, medication withdrawal, viral etiology, dehydration <Brandon Vazquez MD - Last Filed: 08/31/24 22:09> Vital Signs Vital Signs: Vital Signs Temperature 97.4 F L 08/31/24 16:20 Pulse Rate 102 H 08/31/24 16:20 Respiratory Rate 16 08/31/24 16:20 Blood Pressure 149/92 H 08/31/24 16:20 Pulse Oximetry 100 08/31/24 16:20 Temperature 98.5 F 08/31/24 21:52 Pulse Rate 105 H 08/31/24 21:52 Respiratory Rate 16 08/31/24 21:52 Blood Pressure 122/70 08/31/24 21:52 Pulse Oximetry 99 08/31/24 21:52 Oxygen Delivery Room Air 08/31/24 20:36 <Toshia Yanez PA-C - Last Filed: 08/31/24 22:31> Vital Signs Temperature 97.4 F L 08/31/24 16:20 Pulse Rate 102 H 08/31/24 16:20 Respiratory Rate 16 08/31/24 16:20 Blood Pressure 149/92 H 08/31/24 16:20 Pulse Oximetry 100 08/31/24 16:20 Temperature 98.5 F 08/31/24 21:52 Pulse Rate 105 H 08/31/24 21:52 Respiratory Rate 16 08/31/24 21:52 Blood Pressure 122/70 08/31/24 21:52 Pulse Oximetry 99 08/31/24 21:52 Oxygen Delivery Room Air 08/31/24 20:36 <Brandon Vazquez MD - Last Filed: 08/31/24 22:09> Lab Data Lab results reviewed: Yes I reviewed the patient's lab results. <Brandon Vazquez MD - Last Filed: 08/31/24 22:09> Result diagrams: 08/31/24 19:11 08/31/24 19:11 <Toshia Yanez PA-C - Last Filed: 08/31/24 22:31> Labs: Lab Results 08/31/24 08/31/24 Range/Units 19:11 20:13 WBC 12.4 H (4.5-10.0) K/mm3 RBC 4.11 L (4.2-5.4) M/mm3 Hgb 12.1 (12.0-15.0) g/dL Hct 35.8 L (37.0-47.0) % MCV 87.1 (80-100) fl MCH 29.4 (26-34) pg MCHC 33.8 (32-36) g/dl RDW 13.1 (11.5-14.5) % Plt Count 316 (150-375) k/mm3 MPV 8.9 (7.4-10.4) fl Immature Gran % (Auto) 1.1 H (0-0.5) % Neut % (Auto) 71.3 (45.5-73.1) % Lymph % (Auto) 22.3 (18.3-44.2) % [place] % (Auto) 5.0 (2.6-8.5) % Eos % (Auto) 0.1 (0-4.4) % Baso % (Auto) 0.2 (0.2-1.2) % Lymph # (Auto) 2.77 (0.9-3.2) K/mm3 [place] # (Auto) 0.6 (0.1-0.6) K/mm3 Eos # (Auto) 0.0 (0-0.3) K/mm3 Baso # (Auto) 0.0 (0.0-0.1) K/mm3 Abs Immat Gran (auto) 0.14 H (0.00-0.031) K/mm3 Absolute Neuts (auto) 8.9 H (1.3-6.7) K/mm3 Absolute Nucleated RBC 0.000 (0.0-0.012) K/mm3 Nucleated RBC % 0.0 (0.0-0.2) % Sodium 135 L (137-145) mmol/L Potassium 3.7 (3.4-5.0) mmol/L Chloride 105 (98-107) mmol/L Carbon Dioxide 24 (22-30) mmol/L Anion Gap 6 (4-12) mmol/L BUN 7 (7-17) mg/dL Creatinine 0.66 L (0.7-1.0) mg/dL Estim Creat Clear Calc Not Reportable Estimated GFR > 60 (59 - ) Glucose 95 (65-110) mg/dL Calcium 9.3 (8.4-10.2) mg/dL Total Bilirubin 0.5 (0.2-1.3) mg/dL AST 34 (14-36) U/L ALT 41 H (6-35) U/L Alkaline Phosphatase 65 (38-126) U/L Total Protein 7.1 (6.3-8.2) g/dL Albumin 4.1 (3.5-5.1) g/dL Lipase 90 (23-300) U/L Beta HCG, Quant 22236.00 mIU/ML Urine Color Yellow (Yellow) Urine Appearance Clear (Clear) Urine pH 6.0 (5.0-9.0) Ur Specific [place] 1.019 (1.001-1.035) Urine Protein Negative (Negative) mg/dL Urine Glucose (UA) Negative (Negative) mg/dL Urine Ketones Trace H (Negative) mg/dL Ur Blood (Man) Negative (Negative) Urine Nitrate Negative (Negative) Urine Bilirubin Negative (Negative) Urine Urobilinogen 0.2 (<2.0) mg/dL Leukocyte Esterase Rfl Negative (Negative) AVRIL/UL POC Urine HCG, Qual Positive (Negative) Influenza A (RT-PCR) Negative (Negative) Influenza B (RT-PCR) Negative (Negative) RSV (RT-PCR) Negative (Negative) SARS-CoV-2 RNA (RT-PCR) Negative (Negative) <Toshia Yanez PA-C - Last Filed: 08/31/24 22:31> Lab Results 08/31/24 08/31/24 Range/Units 19:11 20:13 WBC 12.4 H (4.5-10.0) K/mm3 RBC 4.11 L (4.2-5.4) M/mm3 Hgb 12.1 (12.0-15.0) g/dL Hct 35.8 L (37.0-47.0) % MCV 87.1 (80-100) fl MCH 29.4 (26-34) pg MCHC 33.8 (32-36) g/dl RDW 13.1 (11.5-14.5) % Plt Count 316 (150-375) k/mm3 MPV 8.9 (7.4-10.4) fl Immature Gran % (Auto) 1.1 H (0-0.5) % Neut % (Auto) 71.3 (45.5-73.1) % Lymph % (Auto) 22.3 (18.3-44.2) % [place] % (Auto) 5.0 (2.6-8.5) % Eos % (Auto) 0.1 (0-4.4) % Baso % (Auto) 0.2 (0.2-1.2) % Lymph # (Auto) 2.77 (0.9-3.2) K/mm3 [place] # (Auto) 0.6 (0.1-0.6) K/mm3 Eos # (Auto) 0.0 (0-0.3) K/mm3 Baso # (Auto) 0.0 (0.0-0.1) K/mm3 Abs Immat Gran (auto) 0.14 H (0.00-0.031) K/mm3 Absolute Neuts (auto) 8.9 H (1.3-6.7) K/mm3 Absolute Nucleated RBC 0.000 (0.0-0.012) K/mm3 Nucleated RBC % 0.0 (0.0-0.2) % Sodium 135 L (137-145) mmol/L Potassium 3.7 (3.4-5.0) mmol/L Chloride 105 (98-107) mmol/L Carbon Dioxide 24 (22-30) mmol/L Anion Gap 6 (4-12) mmol/L BUN 7 (7-17) mg/dL Creatinine 0.66 L (0.7-1.0) mg/dL Estim Creat Clear Calc Not Reportable Estimated GFR > 60 (59 - ) Glucose 95 (65-110) mg/dL Calcium 9.3 (8.4-10.2) mg/dL Total Bilirubin 0.5 (0.2-1.3) mg/dL AST 34 (14-36) U/L ALT 41 H (6-35) U/L Alkaline Phosphatase 65 (38-126) U/L Total Protein 7.1 (6.3-8.2) g/dL Albumin 4.1 (3.5-5.1) g/dL Lipase 90 (23-300) U/L Beta HCG, Quant 62396.00 mIU/ML Urine Color Yellow (Yellow) Urine Appearance Clear (Clear) Urine pH 6.0 (5.0-9.0) Ur Specific [place] 1.019 (1.001-1.035) Urine Protein Negative (Negative) mg/dL Urine Glucose (UA) Negative (Negative) mg/dL Urine Ketones Trace H (Negative) mg/dL Ur Blood (Man) Negative (Negative) Urine Nitrate Negative (Negative) Urine Bilirubin Negative (Negative) Urine Urobilinogen 0.2 (<2.0) mg/dL Leukocyte Esterase Rfl Negative (Negative) AVRIL/UL POC Urine HCG, Qual Positive (Negative) Influenza A (RT-PCR) Negative (Negative) Influenza B (RT-PCR) Negative (Negative) RSV (RT-PCR) Negative (Negative) SARS-CoV-2 RNA (RT-PCR) Negative (Negative) <Brandon Vazquez MD - Last Filed: 08/31/24 22:09> Discharge Plan Discharge Clinical Impression: Headache Qualifiers: Headache type: unspecified Headache chronicity pattern: acute headache I ntractability: not intractable Qualified Code(s): R51.9 - Headache, unspecified <Toshia Yanez PA-C - Last Filed: 08/31/24 22:31> Patient Disposition: Home <Toshia Yanez PA-C - Last Filed: 08/31/24 22:31> Condition: Stable <Toshia Yanez PA-C - Last Filed: 08/31/24 22:31> Instructions: Antibiotic Form, Acute Headache (ED) <Toshia Yanez PA-C - Last Filed: 08/31/24 22:31> Additional Instructions: Have close follow-up with your primary care physician and [facility]. If you have any worsening symptoms and please call or return to the emergency department. <Toshia Yanez PA-C - Last Filed: 08/31/24 22:31> Patient Language: Tunisian <Toshia Yanez PA-C - Last Filed: 08/31/24 22:31> Prescriptions: New ondansetron 4 mg tablet,disintegrating 4 mg PO Q8H PRN (Reason: nausea and vomiting) Qty: 14 0RF No Action norethindrone (contraceptive) 0.35 mg tablet 0.35 mg PO DAILY pantoprazole [Protonix] 40 mg tablet,delayed release (DR/EC) 40 mg PO QAM 28 Days Qty: 28 0RF ondansetron 4 mg tablet,disintegrating 4 mg PO Q8H PRN (Reason: nausea and vomiting) Qty: 20 0RF sumatriptan succinate 50 mg tablet 50 mg PO DIRECTED amitriptyline 25 mg tablet 25 mg PO DAILY lisinopril-hydrochlorothiazide 10-12.5 mg tablet 1 tablet PO DAILY <Toshia Yanez PA-C - Last Filed: 08/31/24 22:31> Follow-up/Referrals: Haile,Estella Dean MD [Primary Care Provider] - <Toshia Yanez PA-C - Last Filed: 08/31/24 22:31>
[2024-08-31 19:09] VITALS: BP 145/89; PULSE 105; RESP 18; O2SAT 100
[2024-08-31 19:21] LABS: Hematocrit 35.8 % (37.0-47.0); Hemoglobin 12.1 g/dL (12.0-15.0); Immature Granulocyte Percent A 1.1 % (0-0.5); Lymphocytes Absolute Auto 2.77 K/mm3 (0.9-3.2); Mean Corpuscular HGB Conc 33.8 g/dl (32-36); Mean Corpuscular Hemoglobin 29.4 pg (26-34); Mean Corpuscular Volume 87.1 fl (80-100); Nucleated Red Blood Cells Absolute Auto 0.000 K/mm3 (0.0-0.012); Nucleated Red Blood Cells Perc 0.0 % (0.0-0.2); Platelet Count Result 316 k/mm3 (150-375); Red Blood Count 4.11 M/mm3 (4.2-5.4); White Blood Count 12.4 K/mm3 (4.5-10.0)
--- OUTSIDE RECORDS SUMMARY | 2024-08-31 19:27 | XMS_ITS | Clinical Summary ---
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 This disclosure is being madepursuant to the Care Everywhere program and may not contain all information available regarding this patient. 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
--- OUTSIDE RECORDS SUMMARY | 2024-08-31 19:27 | XMS_ITS | Clinical Summary ---
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
--- NOTE | 2024-08-31 19:30 | PC.NURSE ---
Dr. Vazquez at bedside talking with pt. and visitor.
[2024-08-31 19:50] LABS: Alanine Aminotransferase 41 U/L (6-35); Albumin Level 4.1 g/dL (3.5-5.1); Alkaline Phosphatase 65 U/L (38-126); Anion Gap 6 mmol/L (4-12); Aspartate Amino Transferase 34 U/L (14-36); Bilirubin,Total 0.5 mg/dL (0.2-1.3); Blood Urea Nitrogen 7 mg/dL (7-17); Calcium 9.3 mg/dL (8.4-10.2); Carbon Dioxide 24 mmol/L (22-30); Chloride 105 mmol/L (98-107); Estimated Glomerular Filt Rate > 60; Glucose 95 mg/dL (65-110); Lipase 90 U/L (23-300); Potassium 3.7 mmol/L (3.4-5.0); Sodium 135 mmol/L (137-145); Total Protein 7.1 g/dL (6.3-8.2)
[2024-08-31 19:57] LABS: Influenza A QL RT-PCR Negative (Negative); Influenza B QL RT-PCR Negative (Negative); RSV RNA, RT-PCR Negative (Negative); SARS-CoV-2 RNA PCR Negative (Negative)
[2024-08-31 20:07] LABS: Beta HCG Quantitative 10756.00 mIU/ML
[2024-08-31 20:15] LABS: BEDSIDEPREGUCG Positive (Negative)
[2024-08-31 20:21] LABS: Add Urine Microscopic? NO; Appearance Urine Clear (Clear); Glucose Urine UA Negative (Negative); Leukocyte Esterase Ur Negative LEU/UL (Negative); Nitrate Urine Negative (Negative); Specific Grav Ur 1.019 (1.001-1.035)
[2024-08-31] MEDS: LACTATED RINGERS 1,000 ML 999 ML IV CONT (20:25)
[2024-08-31] MEDS: METOCLOPRAMIDE HCL INJ 10 MG/2 ML VIAL IV PUSH (20:26)
[2024-08-31 20:36] VITALS: BP 140/85; PULSE 111; RESP 16; O2SAT 100
[2024-08-31 21:05] VITALS: BP 140/85; PULSE 114; RESP 16; O2SAT 100
--- NOTE | 2024-08-31 21:50 | PC.NURSE ---
Pt. states she would like to leave prior to completion of fluids. Pt. is A&Ox4, ambulatory with a steady gait. Reports improvement in headache - rates it 03/22.
[2024-08-31 21:52] VITALS: BP 122/70; PULSE 105; RESP 16; TEMP 36.9; O2SAT 99
== END 2024-08-31 21:58 | disposition home or self-care (01) ==
PROVIDERS: Physician Assistant; Emergency Provider Emergency Medicine; PCP Internal Medicine
DX: O26.891 Other specified pregnancy related conditions, first trimester (principal); R51.9 Headache, unspecified; Z20.822 Contact with and (suspected) exposure to COVID-19; O10.911 Unspecified pre-existing hypertension complicating pregnancy, first trimester; Z87.440 Personal history of urinary (tract) infections; Z79.899 Other long term (current) drug therapy; Z3A.01 Less than 8 weeks gestation of pregnancy
CPT/HCPCS: 36415; 80053; 81003; 81025; 83690; 84702; 85025; 87637; 96361; 96374; 96375; 99284; J1200; J2765; J7120